=== PATIENT | female | born 1935 | race Caucasian/White ===

== ENCOUNTER → 2023-05-05 10:12 | Outpatient (BNVA) | payer MEDICARE, SELFPAY | PROVIDERS: Family Provider Family Medicine; PCP Family Medicine; Referring Provider Family Medicine; Visit Provider Internal Medicine Cardiovascular Disease | DX: R07.9 Chest pain, unspecified (principal); I50.9 Heart failure, unspecified; I45.10 Unspecified right bundle-branch block; R42 Dizziness and giddiness; I44.0 Atrioventricular block, first degree | CPT/HCPCS: 93005; 99203 ==

== ENCOUNTER 2023-05-19 13:24 | Outpatient (CLI) | payer MEDICARE, SELFPAY ==
--- NOTE | 2023-05-19 13:45 | USCV_ITS ---
Joanie Rodriguez Age: 87 Gender: F : 1935 Exam Date: 05/19/2023 14:21 Ordering Phys: Jo Ann Buck MD ([email or web address]) Technologist: [place] [facility] [place]: Shortness of breath BP: 157 / 77 HR: 71 Rhythm: Sinus Technical Quality: Adequate MEASUREMENTS (Male / Female) Normal Values 2D ECHO LV Chamber Size 3.7 cm RV Chamber Size 3.3 cm LVOT Diameter 2.0 cm LV Ejection Fraction MOD 2C 50.1 % LV Ejection Fraction 2C AL 50.6 % LA Diameter 3.9 cm LA Width 4.0 cm LA Height 4.6 cm RA Width 3.5 cm RA Height 4.8 cm Aorta at Sinotubular Diameter 2.1 cm IVC Diameter 1.1 cm M-MODE Aortic Annulus Diameter 2.8 cm LA Ao Ratio MM 1.5 MV E Point Septal Separation 0.9 cm DOPPLER AV Peak Velocity 123.0 cm/s LVOT Peak Velocity 71.0 cm/s AV Area Cont Eq vti 3.2 cm squared AV Area Cont Eq pk 1.8 cm squared MV Area PHT 4.5 cm squared Mitral E to A Ratio 1.0 MV E' Velocity 39.5 cm/s Mitral E to MV E' Ratio 12.7 Mitral E to LV E' Lateral Ratio 12.1 Mitral E to LV E' Septal Ratio 13.6 TR Peak Velocity 171.5 cm/s TR Peak Gradient 11.8 mmHg TV Peak E Velocity 58.0 cm/s Right Atrial Pressure 3.0 mmHg Pulmonary Artery Systolic Pressu 14.8 mmHg PV Peak Velocity 69.0 cm/s FINDINGS Left Ventricle Normal left ventricular size, systolic function and wall thickness, with no regional wall motion abnormalities. Left ventricular ejection fraction is estimated at 65 %. Grade II diastolic dysfunction, moderately elevated filling pressures. Right Ventricle Normal right ventricular size and systolic function. Right ventricular systolic pressure 22 mmHg. Right Atrium Normal right atrial size. Left Atrium Moderately increased left atrial size. Mitral Valve Thickened mitral valve. No mitral valve stenosis. Mild mitral valve regurgitation. Aortic Valve Thickened aortic valve. No aortic valve stenosis. Moderate aortic valve regurgitation. Tricuspid Valve Structurally normal tricuspid valve. No tricuspid valve stenosis. Trace tricuspid valve regurgitation. Pulmonic Valve Structurally normal pulmonic valve. No pulmonary valve stenosis. Trace pulmonary valve regurgitation. Pericardium No pericardial effusion. Aorta Normal size aortic root and proximal ascending aorta. IVC Normal IVC dimension with >50% respiratory change of the inferior vena cava. CONCLUSIONS 1. Normal left ventricular size, systolic function and wall thickness, with no regional wall motion abnormalities. Left ventricular ejection fraction is estimated at 65 %. Grade II diastolic dysfunction, moderately elevated filling pressures. 2. Normal right ventricular size and systolic function. 3. Moderate aortic valve regurgitation. 4. No prior similar studies to compare. Jo Ann Buck MD (Electronically Signed) Final Date: 20 May 2023 17:05 S
== END 2023-05-19 13:25 | disposition home or self-care (01) ==
LOC: RAD 13:24
PROVIDERS: PCP Family Medicine; Visit Provider Internal Medicine Cardiovascular Disease
DX: I50.30 Unspecified diastolic (congestive) heart failure (principal); I45.10 Unspecified right bundle-branch block; I35.1 Nonrheumatic aortic (valve) insufficiency; R42 Dizziness and giddiness; R06.02 Shortness of breath
CPT/HCPCS: 93306

== ENCOUNTER 2023-05-20 13:23 | Emergency (ER) | payer MEDICARE, SELFPAY ==
[2023-05-20] VITALS (34 sets, daily range): BP systolic 84–121; BP diastolic 45–68; PULSE 59–77; RESP 17–18; TEMP 36.1; O2SAT 86–100; BMI 19.1
--- NOTE | 2023-05-20 13:31 | ECG_ITS ---
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 Measurements Intervals [place] Rate: 63 P: 83 ND: 239 QRS: 58 QRSD: 141 T: 48 QT: 426 QTc: 436 Interpretive Statements SINUS RHYTHM WITH FIRST DEGREE AV BLOCK RIGHT BUNDLE BRANCH BLOCK [120+ ms QRS DURATION, UPRIGHT V1, 40+ ms S IN I/aVL/V4/V5/V6] Compared to ECG 05/05/2023 10:17:59 No significant changes Electronically Signed On 05-20-2023 16:45:32 CDT by Jo Ann Buck M.D. [id number]
--- NOTE | 2023-05-20 13:31 | CT_ITS ---
WS: [id number] CT CERVICAL TRAUMA TECHNIQUE: Noncontrast CT of the cervical spine with coronal and sagittal reformatted images. CLINICAL INFORMATION: fall COMPARISON: None. DLP: 1208.[address] scans at [facility] use at least one of these dose optimization techniques: automated e xposure control; mA and/or kV adjustment per patient size (includes targeted exams where dose is matc hed to clinical indication); or iterative reconstruction. FINDINGS: Exaggeration of the normal cervical lordosis. Mild spondylitic changes. Normal craniocervical junctio n. Normal C1-C2 articulation. Dens is normal in appearance. Normal occipital condyles. No high-grade spinal canal narrowing. Normal C1 ring. No evidence of acute fracture or dislocation. Normal prevertebral soft tissues. Mastoids air cells are well aerated. IMPRESSION: No evidence of acute fracture or dislocation.
--- NOTE | 2023-05-20 13:31 | CT_ITS ---
WS: [id number] CT HEAD TECHNIQUE: Noncontrast CT of the head obtained from the skullbase to the vertex. CLINICAL INFORMATION: Fall COMPARISON: None. DLP: 1208.[address] scans at [facility] use at least one of these dose optimization techniques: automated e xposure control; mA and/or kV adjustment per patient size (includes targeted exams where dose is matc hed to clinical indication); or iterative reconstruction. FINDINGS: No evidence of intracranial hemorrhage or mass effect. Ventricular system and basal cisterns are high nt. Moderate small vessel changes with moderate parenchymal volume loss. Intracranial vascular calcif ication. A few secretions in the ethmoid air cells. Mastoid air cells are well aerated. Cavernous car otid calcification. No extra-axial fluid collections. No evidence of mass or mass effect. IMPRESSION: 1. No evidence of intracranial hemorrhage or mass effect. 2. Moderate small vessel changes. Moderate parenchymal volume loss. 3. No acute intracranial findings.
--- NOTE | 2023-05-20 13:33 | W.ED.SYNCOPE ---
HPI - Syncope General: Chief Complaint: Fall Stated Complaint: fall, head lac Time Seen by Provider: 05/20/23 13:26 History of Present Illness: 87-year-old female that presents emergency department after an accidental fall today while at her home in her kitchen. She states she has recently been seen by industrial hygiene engineer and received an echocardiogram yesterday. She states that for the previous 2 days she has felt intermittently dizzy and weak. She states that both her and her recently contracted COVID-19 virus and has just started to recover after being ill for 1 week. She states that she was making her some food in the kitchen when she became dizzy and fell sideways striking her head on a hard object as she started to fall. She states she does have a small laceration to the left forehead area. She states that she does not recall if she had loss of consciousness or not. She denies neck pain, difficulty with vision or ambulation. Associated symptoms: Reports lightheadedness Review of Systems General: Reports: 10 or more systems reviewed and unremarkable except in HPI and below Const: Reports: fatigue and malaise Card: Reports: lightheadedness and syncope Skin/Breast: Reports: other (Laceration left forehead) Neuro: Reports: weakness in extremities and dizziness REPLACED BY [facility] PFSH: Medical History CHF (congestive heart failure), NYHA class III RBBB Family History Daughter Diabetes Denies family history of CAD (coronary artery disease) Clotting disorder Dementia Hyperlipidemia Psychiatric illness Chronic kidney disease (CKD) Suicide Anesthesia complication Bleeding disorder Family history of premature coronary artery disease Lung disease Cancer Hypertension Stroke Physical Exam Const: COMMON NORMALS: no acute distress, average body habitus, patient oriented x3, alert and well nourished HENMT: COMMON NORMALS: external ears normal, Normal external nose present and Normal nasal mucous membranes and turbinates present HEAD & SCALP: laceration (Left lateral supraorbital region with 3 cm laceration noted) NOSE: Normal external nose present, Normal nares present and Normal nasal mucous membranes and turbinates present EXTERNAL EAR: Yes external ears normal and Yes external ear abnormal Eye: COMMON NORMALS: Equal, round and reactive pupils present and EOMs intact bilaterally PUPIL: Yes Equal, round and reactive pupils present Neck/C-Spine: COMMON NORMALS: full ROM, supple and no meningeal signs Chest: COMMONS NORMALS: normal inspection of the chest and normal palpation of entire chest wall Resp: COMMON NORMALS: normal respiratory effort, No retractions, No use of accessory muscles and clear to auscultation bilaterally AUSCULTATION: clear to auscultation bilaterally Cardio: COMMON NORMALS: regular rate, regular rhythm, S1 normal heart sound present, S2 normal heart sound present and Peripheral pulses 2+ throughout RATE: regular rate RHYTHM: regular rhythm HEART SOUNDS: S1 normal heart sound present and S2 normal heart sound present PERIPHERAL PULSES: Peripheral pulses 2+ throughout GI: COMMON NORMALS: Normal to inspection, nondistended, normoactive bowel sounds present, Soft to palpation and non-tender PALPATION: Yes Soft to palpation Back/Pelvis: COMMON NORMALS: thoracic and lumbar spine normal to inspection, no thoracic nor lumbar tenderness and thoraco-lumbar ROM normal Extremity: COMMON NORMALS: normal to inspection, full ROM and capillary refill normal Neuro: COMMON NORMALS: patient oriented x3, CN's II-XII intact bilaterally, moves all extremities, no focal motor deficits, no sensory deficits noted and gait normal SENSORIUM/ORIENTATION: Yes alert MENINGEAL SIGNS: Yes no meningeal signs Psych: COMMON NORMALS: mental status grossly normal, Normal thought process present and cooperative THOUGHT PROCESS: Normal thought process present Skin: TRAUMA: laceration linear, actively bleeding, superficial, motor nerve function intact and sensation intact Procedures Laceration Laceration 1: Site: face (Left lateral supraorbital region) Side (If applicable): left Size (cm): 3 Depth: simple, single layer Local Anesthetic: lidocaine 1% Amount of anesthesia used (mL): 5 Pre-repair: wound explored and irrigated extensively Skin layer closed with: vicryl (4-0) Size (cm): 4-0 Number of sutures: 3 Technique: simple, interrupted Course Vital Signs: Vital signs: Vital Signs Temperature 97 F L 05/20/23 13:25 Pulse Rate 59 L 05/20/23 16:49 Respiratory Rate 18 05/20/23 16:49 Blood Pressure 121/61 05/20/23 16:49 Pulse Oximetry 93 05/20/23 16:49 Oxygen Delivery Me thod Room Air 05/20/23 14:06 MDM - Syncope Medical Decision Making Physical exam completed and documented, radiograph examination given the patient's age and the mechanism of her fall we will obtain a CT scan of her head and neck to evaluate for intracranial injury. Given her recent COVID illness we will obtain laboratory evaluation to determine if there is electrolyte abnormalities which led to her recent fall. We have provided laceration repair as noted previously. Given her recent office visit with her industrial hygiene engineer we will recommend that she follow-up with her primary care provider and follow any cardiology recommendations that were provided previously. Medical Records I reviewed the patient's medical records. Lab Data I reviewed the patient's lab results. 05/20/23 14:17 05/20/23 14:17 Radiology Impressions Chest X-Ray 05/20/23 13:34 IMPRESSION: No acute findings. Laboratory Results WBC 4.78 10^3/uL (3.29-11.43) 05/20/23 14:17 RBC 4.26 10^6/uL (3.85-5.65) 05/20/23 14:17 Hgb 12.30 g/dL (11.27-16.99) 05/20/23 14:17 Hct 38.3 % (36-47) 05/20/23 14:17 MCV 89.9 fl (85-98) 05/20/23 14:17 MCH 28.9 pg (27-33) 05/20/23 14:17 MCHC 32.1 g/dL (30-55) 05/20/23 14:17 RDW 13.2 % (12.1-15.1) 05/20/23 14:17 Plt Count 154 10^3/cmm (157-399) L 05/20/23 14:17 MPV 12.3 fL (7.4-10.4) H 05/20/23 14:17 Neut % (Auto) 75.5 % 05/20/23 14:17 Lymph % (Auto) 13.0 % 05/20/23 14:17 [place] % (Auto) 10.5 % 05/20/23 14:17 Eos % (Auto) 0.4 % 05/20/23 14:17 Baso % (Auto) 0.2 % 05/20/23 14:17 Neut # (Auto) 3.61 10^3/uL (1.8-7.7) 05/20/23 14:17 Lymph # (Auto) 0.6 10^3/uL (0.8-4.8) L 05/20/23 14:17 [place] # (Auto) 0.5 10^3/uL (0.2-0.9) 05/20/23 14:17 Eos # (Auto) 0.0 10^3/uL (0.0-0.8) 05/20/23 14:17 Baso # (Auto) 0.0 10^3/uL (0.0-0.1) 05/20/23 14:17 Nucleated RBC % (auto) 0 % 05/20/23 14:17 Nucleated RBCs # 0.0 /100WBC 05/20/23 14:17 Sodium 141 mmol/L (136-145) 05/20/23 14:17 Potassium 4.3 mmol/L (3.5-5.1) 05/20/23 14:17 Chloride 103 mmol/L (98-107) 05/20/23 14:17 Carbon Dioxide 27 mmol/L (22-29) 05/20/23 14:17 Anion Gap 15.3 (5-19) 05/20/23 14:17 BUN 34 mg/dL (8-23) H 05/20/23 14:17 Creatinine 1.6 mg/dL (0.5-0.9) H 05/20/23 14:17 GFR Calculation Not Reportable 05/20/23 14:17 Glucose 118 mg/dL (65-115) H 05/20/23 14:17 Calculated Osmolality 301 mOsm/kg (285-295) H 05/20/23 14:17 Calcium 9.5 mg/dL (8.5-10.5) 05/20/23 14:17 Magnesium 2.0 mg/dL (1.7-2.3) 05/20/23 14:17 Total Bilirubin 0.6 mg/dL (0.15-1.2) 05/20/23 14:17 AST 86 U/L (0-32) H 05/20/23 14:17 ALT 102 U/L (0-33) H 05/20/23 14:17 Alkaline Phosphatase 137 U/L (35-105) H 05/20/23 14:17 Total Protein 7.0 g/dL (6.6-8.7) 05/20/23 14:17 Albumin 4.2 g/dL (3.5-5.2) 05/20/23 14:17 Globulin 2.8 g/dL (1.3-4.6) 05/20/23 14:17 Urine Color Yellow (Yellow) 05/20/23 15:06 Urine Appearance Cloudy (CLEAR) A 05/20/23 15:06 Urine pH 5 (5-7) 05/20/23 15:06 Ur Specific [place] 1.020 (1.005-1.030) 05/20/23 15:06 Urine Protein Neg (Negative) 05/20/23 15:06 Urine Glucose (UA) Norm (Normal) 05/20/23 15:06 Urine Ketones Negative (Negative) 05/20/23 15:06 Urine Blood Neg (Negative) 05/20/23 15:06 Urine Nitrate Negative (Negative) 05/20/23 15:06 Urine Bilirubin 1+ (Negative) H 05/20/23 15:06 Urine Urobilinogen Norm mg/dL (Negative) 05/20/23 15:06 Ur Leukocyte Esterase 1+ (Negative) H 05/20/23 15:06 Urine RBC 0-4 /hpf (0-2) H 05/20/23 15:06 Urine WBC 0-4 /hpf (0-5) H 05/20/23 15:06 Ur Squamous Epith Cells 25-40 /hpf (0-5) H 05/20/23 15:06 Amorphous Sediment Not Reportable 05/20/23 15:06 Urine Bacteria 2+ /hpf (NONE) H 05/20/23 15:06 Hyaline Casts 0-4 /lpf H 05/20/23 15:06 Fine Granular Casts Rare /lpf 05/20/23 15:06 Urine Mucus Trace /hpf 05/20/23 15:06 Influenza Type A Ag negative (Negative) 05/20/23 14:07 Influenza Type B Ag negative (Negative) 05/20/23 14:07 All radiology interpretation(s) finalized by discharge Discharge Plan Discharge Patient Disposition: Home Clinical Impression: Fall, Laceration of face Condition: Stable Prescriptions: No Action dicyclomine 10 mg capsule 10 mg PO QAM levothyroxine 25 mcg capsule 25 mcg PO QAM lisinopril 5 mg tablet 5 mg PO QAM metoprolol succinate 25 mg tablet extended release 24 hr 12.5 mg PO QAM mirtazapine 7.5 mg tablet 7.5 mg PO BEDTIME PRN (Reason: Anxiety) pantoprazole [Protonix] 40 mg tablet,delayed release (DR/EC) 40 mg PO QPM hydrochlorothiazide 12.5 mg capsule 12.5 mg PO QAM Discharge Orders: Discharge ED (Routine); Ordered 05/20/23 Ordered By: Rolly Randle Referrals: Ralph Doty [Primary Care Provider] - Discharge Diet: Advance as tolerated Discharge Activity: Resume usual activity Patient Instructions: Opioid Safety, Pain Management Activity Restrictions/Additional Instructions: Follow-up with your primary care provider in the next 7 to 10 days to have your wound evaluated for suture removal. You may return here to the emergency department between the hours of 8 and 10 AM which may allow you to be seen and have your sutures removed more quickly. Coding Level of Care Code ED Financial Investment Adviser for Kaci Norman
--- NOTE | 2023-05-20 13:34 | XRR_ITS ---
PROCEDURE INFORMATION: Exam: XR Chest Exam date and time: 05/20/2023 1:39 PM Age: 87 years old Clinical indication: Other: Syncope TECHNIQUE: Imaging protocol: Radiologic exam of the chest. Views: 1 view. COMPARISON: CT abdomen pelvis con [id number] 02/12/2017 9:41 AM FINDINGS: Lungs: Changes of emphysema. The lungs are clear. No consolidation. Pleural spaces: Unremarkable. No pleural effusion. No pneumothorax. Heart/Mediastinum: Unremarkable. No cardiomegaly. Bones/joints: Old right rib fracture. Resection of the distal right clavicle. XR/XR chest 1V portable [id number] IMPRESSION: No acute findings.
[2023-05-20 14:41] LABS: Basophils % 0.2 %; Eosinophils % 0.4 %; Hematocrit 38.3 % (36-47); Lymphocytes # 0.6 10^3/uL (0.8-4.8); Mean Corpuscular HGB Conc 32.1 g/dL (30-55); Mean Corpuscular Hemoglobin 28.9 pg (27-33); Mean Corpuscular Volume 89.9 fl (85-98); Mean Platelet Volume 12.3 fL (7.4-10.4); Monocytes # 0.5 10^3/uL (0.2-0.9); Monocytes % 10.5 %; Neutrophils # 3.61 10^3/uL (1.8-7.7); Neutrophils % 75.5 %; Nucleated Red Blood Cells % 0 %; Platelet Count 154 10^3/cmm (157-399); Red Blood Count 4.26 10^6/uL (3.85-5.65); Red Cell Distribution Width 13.2 % (12.1-15.1); White Blood Count 4.78 10^3/uL (3.29-11.43)
[2023-05-20 14:55] LABS: Influenza A by IFA negative (Negative); Influenza B by IFA negative (Negative)
[2023-05-20 15:01] LABS: Alanine Aminotransferase 102 U/L (0-33); Albumin Level 4.2 g/dL (3.5-5.2); Alkaline Phosphatase 137 U/L (35-105); Anion Gap 15.3 (5-19); Aspartate Amino Transferase 86 U/L (0-32); Blood Urea Nitrogen 34 mg/dL (8-23); Calcium 9.5 mg/dL (8.5-10.5); Carbon Dioxide 27 mmol/L (22-29); Chloride 103 mmol/L (98-107); Globulin 2.8 g/dL (1.3-4.6); Glucose 118 mg/dL (65-115); Osmolality Calculated 301 mOsm/kg (285-295); Potassium 4.3 mmol/L (3.5-5.1); Sodium 141 mmol/L (136-145); Total Bilirubin 0.6 mg/dL (0.15-1.2)
[2023-05-20 15:48] LABS: Add Urine Microscopic? YES; Bilirubin Urine 1+ (Negative); Blood Urine Neg (Negative); Glucose Urine UA Norm (Normal); Ketones Urine Negative (Negative); Leukocyte Esterase Urine 1+ (Negative); Nitrate Urine Negative (Negative); Protein Urine Neg (Negative); RBC Urine 0-4 /hpf (0-2); Urine Appearance Cloudy (CLEAR); Urine Color Yellow (Yellow); Urobilinogen Urine Norm (Negative); WBC Urine 0-4 /hpf (0-5); pH Urine 5 (5-7)
[2023-05-20 15:49] LABS: Add Urine Culture? No; Bacteria Urine 2+ /hpf; Fine Granular Casts Urine RARE /lpf; Hyaline Casts Urine 0-4 /lpf; Mucus Urine TRACE /hpf; Squamous Epithelial Cell Urine 25-40 /hpf (0-5)
[2023-05-20] MEDS: neomycin-poly-bacitracin oint 28 gm 1 APPLIC TOPICAL (16:49)
== END 2023-05-20 16:50 | disposition home or self-care (01) ==
PROVIDERS: Emergency Provider Internal Medicine; PCP Family Medicine
DX: S01.81XA Laceration without foreign body of other part of head, initial encounter (principal); W18.39XA Other fall on same level, initial encounter; Y92.000 Kitchen of unspecified non-institutional (private) residence as the place of occurrence of the external cause; I50.9 Heart failure, unspecified
CPT/HCPCS: 36415; 70450; 71045; 72125; 80053; 81001; 83735; 85025; 87804; 93005; 99285

== ENCOUNTER → 2023-11-05 15:43 | Outpatient (BNVA) | payer MEDICARE, SELFPAY | PROVIDERS: PCP Family Medicine; Referring Provider Family Medicine; Visit Provider Specialist | DX: M17.11 Unilateral primary osteoarthritis, right knee | CPT/HCPCS: 20610; 73560; 73565; 99204; J1100; J2795; J3301 ==

== ENCOUNTER 2023-11-27 15:19 | Outpatient (CLI) | payer MEDICARE, SELFPAY | END 2023-11-27 15:20 | disposition home or self-care (01) | LOC: SPT 15:19 | PROVIDERS: PCP Family Medicine; Visit Provider Specialist | DX: Z46.89 Encounter for fitting and adjustment of other specified devices (principal); M25.561 Pain in right knee; M17.11 Unilateral primary osteoarthritis, right knee | CPT/HCPCS: 97760; L1851 ==

== ENCOUNTER 2024-02-07 19:30 | Inpatient (IN) | payer MEDICARE, SELFPAY ==
--- NOTE | 2024-02-07 19:40 | ECG_ITS ---
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 Measurements Intervals [place] Rate: 102 P: 75 [place]: 237 QRS: 9 QRSD: 129 T: 30 QT: 356 QTc: 464 Interpretive Statements RIGHT BUNDLE BRANCH BLOCK [120+ ms QRS DURATION, UPRIGHT V1, 40+ ms S IN I/aVL/V4/V5/V6] Sinus rhythm with frequent premature atrial contractions Compared to ECG 05/20/2023 14:07:56 Ectopy is new Electronically Signed On 02-08-2024 9:56:20 CDT by Alex Low M.D. [id number]
[2024-02-07 19:46] VITALS: BP 164/85; PULSE 89; RESP 38; TEMP 37.5; O2SAT 91; BMI 20.6
--- NOTE | 2024-02-07 19:56 | XRR_ITS ---
PROCEDURE INFORMATION: Exam: XR Chest Exam date and time: 02/07/2024 8:32 PM Age: 88 years old Clinical indication: Chest pressure; Patient HX: Chest pain; Weakness; Afib; Wheezing TECHNIQUE: Imaging protocol: Radiologic exam of the chest. Views: 1 view. COMPARISON: CR XR chest 1V portable [id number] 05/20/2023 1:39 PM FINDINGS: Lungs: Mild central vascular congestion. Moderate interstitial prominence most consistent with pulmonary edema. Pleural spaces: Small bilateral pleural effusions. No pneumothorax. Heart/Mediastinum: Mild cardiomegaly. Bilateral calcified mediastinal lymph nodes, stable. Bones/joints: No acute osseous abnormalities are seen. XR/XR chest 1V portable [id number] IMPRESSION: Cardiomegaly, central vascular congestion, pulmonary edema, and small effusions. Correlate with CHF. Atypical infection could potentially have this appearance.
[2024-02-07 20:15] LABS: Basophils % 0.4 %; Eosinophils # 0.1 10^3/uL (0.0-0.8); Eosinophils % 1.3 %; Hematocrit 38.5 % (36-47); Lymphocytes # 0.8 10^3/uL (0.8-4.8); Lymphocytes % 9.5 %; Mean Corpuscular HGB Conc 30.9 g/dL (30-55); Mean Corpuscular Hemoglobin 29.2 pg (27-33); Mean Corpuscular Volume 94.6 fl (85-98); Mean Platelet Volume 11.8 fL (7.4-10.4); Monocytes # 0.7 10^3/uL (0.2-0.9); Monocytes % 8.3 %; Neutrophils # 6.57 10^3/uL (1.8-7.7); Neutrophils % 80.1 %; Nucleated Red Blood Cells % 0 %; Platelet Count 156 10^3/cmm (157-399); Red Blood Count 4.07 10^6/uL (3.85-5.65); Red Cell Distribution Width 12.9 % (12.1-15.1)
[2024-02-07 20:31] LABS: Troponin(5th) Baseline 17 ng/L (0-10)
[2024-02-07 20:32] LABS: Anion Gap 14.1 (5-19); Blood Urea Nitrogen 19 mg/dL (8-23); Calcium 8.8 mg/dL (8.5-10.5); Carbon Dioxide 27 mmol/L (22-29); Chloride 108 mmol/L (98-107); Creatinine Clr Calc Pharmacy 30.9511; Glucose 122 mg/dL (65-115); Osmolality Calculated 304 mOsm/kg (285-295); Potassium 4.1 mmol/L (3.5-5.1); Sodium 145 mmol/L (136-145)
[2024-02-07 21:36] VITALS: BP 158/78; PULSE 73; RESP 32; TEMP 37.5; O2SAT 92
[2024-02-07 22:30] VITALS: PULSE 90; RESP 18; O2SAT 90
[2024-02-07] MEDS: ipratropium-albuterol 3 mL Neb INHALATION (22:30)
[2024-02-07 22:31] LABS: Troponin 5 2HR 17.62 ng/L (0-10); Troponin 5 2HR Delta 0.62 ABS# (0-10)
[2024-02-07 22:33] VITALS: BP 176/82; PULSE 88; RESP 18; O2SAT 94
[2024-02-07] MEDS: methylPREDNISolone sod succ 125 mg/2 mL INJ IVP (22:43)
[2024-02-07 23:11] LABS: NT Pro B Type Natriuretic Pept 3705 pg/mL (0-450)
[2024-02-07] MEDS: cefTRIAXone 1,000 MG in sodium chloride 0.9% (plus) 50 ML 100 MG IV (23:17)
[2024-02-08] VITALS (8 sets, daily range): BP systolic 117–165; BP diastolic 62–78; PULSE 70–91; RESP 16–18; TEMP 36.3–37.1; O2SAT 92–94; BMI 21.9
--- NOTE | 2024-02-08 00:29 | USCV_ITS ---
Joanie Rodriguez Age: 88 Gender: F : 1935 Exam Date: 02/08/2024 10:49 Ordering Phys: Vanesa Oliveira MD Technologist: Lex Suh [place] [facility] [place]ication: suspected heart failure BP: 140 / 65 HR: 74 Rhythm: Sinus Technical Quality: Adequate MEASUREMENTS (Male / Female) Normal Values 2D ECHO LV Diastolic Diameter PLAX 4.4 cm 4.2 - 5.9 / 3.9 - 5.3 cm IVS Diastolic Thickness 0.9 cm 0.6 - 1.0 / 0.6 - 0.9 cm IVS Systolic Thickness 1.3 cm LVPW Diastolic Thickness 1.6 cm 0.6 - 1.0 / 0.6 - 0.9 cm LVPW Systolic Thickness 1.9 cm LVOT Diameter 2.1 cm LV Ejection Fraction 2D Teich 57.1 % LV Ejection Fraction MOD 2C 73.1 % LV Ejection Fraction 2C AL 72.3 % LA Diameter 3.2 cm RA Systolic Volume 4C AL 39.3 ml RA Systolic Volume 4C MOD 39.1 ml LA Sys Volume AL 41.8 cm cubed LA Sys Volume Index AL 28.4 cm cubed/m squared Aorta at Sinotubular Diameter 1.9 cm IVC Diameter 1.4 cm M-MODE LA Ao Ratio MM 1.7 AV Cusp Separation MM 1.6 cm DOPPLER AV Peak Velocity 277.3 cm/s LVOT Peak Velocity 46.0 cm/s AV Area Cont Eq vti 2.1 cm squared AV Area Cont Eq pk 0.6 cm squared MV Peak Velocity 483.5 cm/s MV Area PHT 5.6 cm squared Mitral E to A Ratio 1.6 TV Peak Velocity 300.0 cm/s TR Peak Velocity 306.0 cm/s TR Peak Gradient 37.5 mmHg TR Mean Velocity 232.0 cm/s TR Mean Gradient 23.8 mmHg TR Velocity Time Integral 103.6 cm PV Peak Velocity 89.0 cm/s RV Ejection Time 0.3 s FINDINGS Left Ventricle Normal left ventricular size, systolic function and wall thickness, with no regional wall motion abnormalities. Grade II/IV diastolic dysfunction, moderately elevated filling pressures. Left ventricular ejection fraction is estimated at 60 %. Right Ventricle Normal right ventricular size and systolic function. Right Atrium The right atrium is normal in size. Left Atrium Mildly increased left atrial size. Mitral Valve Structurally normal mitral valve. Moderate mitral valve regurgitation. Aortic Valve Structurally normal trileaflet aortic valve. [id number] aortic valve regurgitation. Tricuspid Valve Structurally normal tricuspid valve. Trace to mild tricuspid valve regurgitation. Pulmonic Valve Pulmonic valve not well visualized. Trace pulmonary valve regurgitation. Pericardium Normal pericardium without effusion. Aorta Normal ascending aorta dimension. IVC The inferior vena cava appears normal. CONCLUSIONS Normal left ventricular size, systolic function and wall thickness, with no regional wall motion abnormalities. Grade II/IV diastolic dysfunction, moderately elevated filling pressures. Left ventricular ejection fraction is estimated at 60 %. Mildly increased left atrial size. Structurally normal mitral valve. Moderate mitral valve regurgitation. Structurally normal trileaflet aortic valve. [id number] aortic valve regurgitation. Previous study was May of last year. No change. Dr. Alex Low MD (Electronically Signed) Final Date: 08 February 2024 17:09 S
[2024-02-08] MEDS: mirtazapine 15 mg Tablet 7.5 MG PO ×2 (00:59→21:17)
[2024-02-08 01:04] LABS: Add Urine Culture? Yes; Add Urine Microscopic? YES; Amorphous Sediment Urine TRACE /hpf; Bacteria Urine 1+ /hpf; Bilirubin Urine Neg (Negative); Blood Urine 2+ (Negative); Glucose Urine UA Norm (Normal); Ketones Urine Negative (Negative); Leukocyte Esterase Urine 1+ (Negative); Mucus Urine TRACE /hpf; Nitrate Urine Negative (Negative); Protein Urine Neg (Negative); RBC Urine 0-4 /hpf (0-2); Squamous Epithelial Cell Urine 0-4 /hpf (0-5); Urine Appearance Clear (CLEAR); Urine Color Yellow (Yellow); Urobilinogen Urine Neg (Negative); pH Urine 5 (5-7)
[2024-02-08 01:06] LABS: Adenovirus Not Detected (NOT DETECT); Chlamydia Pneumoniae Not Detected (NOT DETECT); Coronavirus 229E,HKU1,NL63,OC4 Not Detected (NOT DETECT); Human Metapneumovirus Not Detected (NOT DETECT); Human Rhinovirus/Enterovirus Not Detected (NOT DETECT); Influenza A Not Detected (NOT DETECT); Influenza A H1 Not Detected (NOT DETECT); Influenza A H1-2009 Not Detected (NOT DETECT); Influenza A H3 Not Detected (NOT DETECT); Influenza B Not Detected (NOT DETECT); Mycoplasma Pneumoniae Not Detected (NOT DETECT); Parainfluenza Virus Type 1 Not Detected (NOT DETECT); Parainfluenza Virus Type 2 Not Detected (NOT DETECT); Parainfluenza Virus Type 3 Not Detected (NOT DETECT); Parainfluenza Virus Type 4 Not Detected (NOT DETECT); Respiratory Syncytial Virus A Not Detected (NOT DETECT); Respiratory Syncytial Virus B Not Detected (NOT DETECT); SARS-COV-2 Not Detected (NOT DETECT)
[2024-02-08 02:08] LABS: Troponin 5 6HR 16.29 ng/L (0-10); Troponin 5 6HR Delta -0.71 ng/L (0-12)
[2024-02-08 02:17] LABS: Procalcitonin 0.05 ng/mL (0-0.5)
--- NOTE | 2024-02-08 02:17 | P.HP_ITS ---
Providers/Chief Complaint 2 Admitting Physician: Vanesa Oliveira MD Primary Care Provider: Ralph Doty Chief Complaint: Sob bp high has afib wheezy History of Present Illness Joanie Rodriguez is a 88 year old woman with PMH of CHF , RBBB, A.fibrillation who presents for further evaluation of worsening shortness of breath, cough, subjective fever of a few day.s She also noticed some lower extremity puffiness. She denies abdominal pain, nausea, vomiting , chest pain or any other symptoms. In the ER, she was noted to be hypoxic. Chest x-ray showed signs of pulmonary edema vs pneumonia. Review of Systems 2 General: Reports: 10 or more systems reviewed and unremarkable except in HPI and below Const: Denies: fever(s) Eyes: Denies: change in vision or blurry vision ENMT: Denies: throat pain or uvular edema Card: Denies: chest pain or palpitations GI: Denies: abdominal pain, nausea or vomiting : Denies: flank pain or difficulty voiding Neuro: Denies: headache(s), numbness in extremities or weakness in extremities Endo: Denies: polyuria or polydipsia Medications/Allergies Home Medications Medication Instructions Recorded Confirmed Last Taken Type levothyroxine 25 mcg capsule 25 mcg PO QAM 05/05/23 02/08/24 02/07/24 10:00 History metoprolol succinate 25 mg 12.5 mg PO QAM 05/05/23 02/08/24 02/07/24 10:00 History tablet,extended release 24 hr mirtazapine 7.5 mg tablet 7.5 mg PO BEDTIME PRN Anxiety 05/05/23 02/08/24 02/07/24 10:00 History pantoprazole 40 mg tablet,delayed 40 mg PO QAM 05/05/23 02/08/24 02/07/24 10:00 History release (Protonix) hydrochlorothiazide 12.5 mg capsule 12.5 mg PO QAM PRN Blood Pressure 05/21/23 02/08/24 02/07/24 10:00 History lisinopril 5 mg tablet 2.5 mg PO QAM 05/21/23 02/08/24 02/07/24 10:00 History 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, 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 #1 ea 11/06/23 11/06/23 Unknown Rx magnesium oxide 200 mg PO DAILY 02/08/24 02/08/24 02/07/24 10:00 History Allergies Allergy/AdvReac Type Severity Reaction Status Date / Time Sulfa (Sulfonamide Allergy Unknown Verified 02/07/24 19:56 Antibiotics) PFSH Acute 2 PFSH: Medical History RBBB CHF (congestive heart failure), NYHA class III Family History Daughter Diabetes Denies family history of CAD (coronary artery disease) Clotting disorder Dementia Hyperlipidemia Psychiatric illness Chronic kidney disease (CKD) Suicide Anesthesia complication Bleeding disorder Family history of premature coronary artery disease Lung disease Cancer Hypertension Stroke Vitals/I&O/Wt Last Vital Signs Temp 98.8 F 02/08/24 00:55 Pulse 91 02/08/24 00:55 Resp 16 02/08/24 00:55 BP 155/76 02/08/24 00:55 Pulse Ox 93 02/08/24 00:55 O2 Del Method Nasal Cannula 02/08/24 00:55 O2 Flow Rate 1.5 02/08/24 00:55 02/07/24 02/07/24 02/08/24 14:59 22:59 06:59 Intake Total 50 / 50 Balance 50 / 50 Weight last 48 hrs Weight 50.802 kg Weight 46.266 kg Physical Exam 2 Const: COMMON NORMALS: no acute distress, patient oriented x3 and alert O THER: Wearing nasal canula HENMT: COMMON NORMALS: normocephalic, atraumatic, external ears normal, Normal external nose present, moist oral mucous membranes and oropharynx normal HEAD & SCALP: normocephalic and atraumatic NOSE: Normal external nose present E XTERNAL EAR: Yes external ears normal Eye: COMMON NORMALS: Equal, round and reactive pupils present, EOMs intact bilaterally, conjunctivae normal and no scleral icterus CONJUNCTIVA: Yes conjunctivae normal PUPIL: Yes Equal, round and reactive pupils present Neck/C-Spine: COMMON NORMALS: full ROM, no lymphadenopathy and no JVD Chest: COMMONS NORMALS: normal inspection of the chest Resp: AUSCULTATION: clear to auscultation bilaterally OTHER: Diminished breath sounds BL, bibasilar crackles , no wheezes Cardio: COMMON NORMALS: regular rate, regular rhythm, S1 normal heart sound present and S2 normal heart sound present RATE: regular rate RHYTHM: r egular rhythm HEART SOUNDS: S1 normal heart sound present and S2 normal heart sound present GI: COMMON NORMALS: Normal to inspection, nondistended, normoactive bowel sounds present, Soft to palpation and non-tender PALPATION: Yes Soft to palpation Extremity: COMMON NORMALS: normal to inspection NARRATIVE EXTREMITY EXAM: + BL pedal edema Neuro: COMMON NORMALS: patient oriented x3 SENSORIUM/ORIENTATION: Yes alert OTHER: No gross focal deficits Data 02/08/24 01:32 02/08/24 01:32 Micro: Microbiology 02/07/24 23:00 Blood Culture - Preliminary Blood SPECIMEN COLLECTED 02/07/24 23:00 Blood Culture - Preliminary Blood SPECIMEN COLLECTED A&P Assessment and plan (1) Decompensated heart failure: -Patient presented with shortness of breath . Chest x-ray shows pulmonary edema , small effusions -Start IV lasix 20mg BID , strict i/os, daily weights -check TTE -Ct to monitor (2) Hypoxia: - In the setting of heart failure -She does not wear oxygen at baseline, she is requiring 1.5L supplemental oxygen -Wean oxygen as tolerated (3) Pneumonia: -Chest x-ray findings also suspicious for pneumonia -She received dose of ceftriaxone in the ER -Check procalcitonin, deescalate antibiotics as appropriate (4) Hypertension: -Resume antihypertesnives (5) UTI (urinary tract infection): - Continue ceftriaxone -Follow urine cultures Attestations 2 Medical Necessity Statement*: Patient's care will cross 2 midnights Coding Level of Care Code Acute Code for [facility] Diagnoses Decompensated heart failure I50.9 Hypoxia R09.02 Pneumonia J18.9 Hypertension I10 UTI (urinary tract infection) N39.0
--- NOTE | 2024-02-08 02:40 | ECG_ITS ---
[facility] Test Date: 2024-02-08 Pat Name: Joanie Rodriguez Department: Room: 263 Gender: Female Sas Programmer: : 1935 Requested By: Ky Kramer Order Number: [id number] Jerad MD: Alex Low M.D. Measurements Intervals [place] Rate: 81 P: 91 MI: 228 QRS: 22 QRSD: 134 T: 0 QT: 406 QTc: 474 Interpretive Statements RIGHT BUNDLE BRANCH BLOCK [120+ ms QRS DURATION, UPRIGHT V1, 40+ ms S IN I/aVL/V4/V5/V6] Compared to ECG 02/07/2024 19:40:46 No significant changes Electronically Signed On 02-08-2024 10:01:18 CDT by Alex Low M.D. [id number]
[2024-02-08] MEDS: FUROsemide 10 mg/mL SDV 2mL 20 MG IVP ×2 (03:02→15:25)
[2024-02-08] MEDS: enoxaparin 40 mg/0.4 mL Syringe SUBCUT (03:02)
--- NOTE | 2024-02-08 03:27 | W.ED.SOB ---
HPI - SOB/Dyspnea General: Chief Complaint: General Medical Stated Complaint: Sob bp high has afib wheezy Time Seen by Provider: 02/07/24 22:22 History of Present Illness: HPI Narrative: 88-year-old female complaining of shortness of breath. Family noticed her blood pressure was elevated today. They also noticed that her respiratory rate did come up, and that she was running a temperature. She does not normally use oxygen. She had a mild cough. She appeared wheezy to them. MD elicited complaint: shortness of breath Associated symptoms: Reports fever(s); Deny abdominal pain, chest pain or vomiting Review of Systems Const: Reports: fever(s) Card: Denies: chest pain Resp: Reports: dyspnea and non-productive cough GI: Denies: abdominal pain or vomiting PFSH ED PFSH: Medical History RBBB CHF (congestive heart failure), NYHA class III Family History Daughter Diabetes Denies family history of CAD (coronary artery disease) Clotting disorder Dementia Hyperlipidemia Psychiatric illness Chronic kidney disease (CKD) Suicide Anesthesia complication Bleeding disorder Family history of premature coronary artery disease Lung disease Cancer Hypertension Stroke Physical Exam Const: GENERAL APPEARANCE: cooperative, ill appearing and frail appearing HENMT: COMMON NORMALS: normocephalic, atraumatic and Normal external nose present HEAD & SCALP: normocephalic and atraumatic FACE & SINUS: normal facial exam and face symmetric NOSE: Normal external nose present Eye: COMMON NORMALS: Equal, round and reactive pupils present and EOMs intact bilaterally PUPIL: Yes Equal, round and reactive pupils present Neck/C-Spine: GENERAL: Yes trachea midline Chest: CHEST: Yes Symmetrical chest wall rise Resp: EFFORT & INSPECTION: Yes symmetric chest movement and Yes tachypneic AUSCULTATION: rhonchi Cardio: COMMON NORMALS: regular rate RATE: regular rate RHYTHM: abnormal rhythm irregularly irregular GI: COMMON NORMALS: Normal to inspection, nondistended, normoactive bowel sounds present Extremity: COMMON NORMALS: no pedal edema Neuro: EVE COMA SCALE: document GCS findings Bogard coma scale eye opening: Spontaneous Bogard coma scale verbal response: Orientated Bogard coma scale motor response: Obey commands Bogard coma scale total score: 15 SENSORY EXAM: Yes extremities (intact) Psych: COMMON NORMALS: speech normal SPEECH: Yes normal speech Skin: COMMON NORMALS: no rashes or lesions noted GENERAL SKIN EXAM: no rashes or lesions noted Course Vital Signs: Vital signs: Vital Signs Temperature 97.4 F L 02/08/24 16:58 Pulse Rate 75 02/08/24 16:58 Respiratory Rate 18 02/08/24 16:58 Blood Pressure 136/78 02/08/24 16:58 Pulse Oximetry 93 02/08/24 16:58 Oxygen Delivery Me thod Room Air 02/08/24 16:58 Oxygen Flow Rate 1.5 02/08/24 00:55 MDM - SOB/Dyspnea Medical Decision Making Shortness of breath, increased oxygen demand, tachypnea and fever. White blood cell count is 8. Creatinine is normal. She denies chest pain. Troponin stayed stable at 17. BNP is elevated. Chest x-ray shows right lower lobe infiltrate with increased vasculature. CHF versus pneumonia. She has been given antibiotics after lactic acid and blood cultures have been drawn here. She will be admitted. Hospitalist agrees to admit. Lab Data 02/08/24 01:32 02/08/24 01:32 Labs/Radiology: Radiology Impressions Chest X-Ray 02/07/24 19:56 IMPRESSION: Cardiomegaly, central vascular congestion, pulmonary edema, and small effusions. Correlate with CHF. Atypical infection could potentially have this appearance. Laboratory Results WBC 8.20 10^3/uL (3.29-11.43) 02/07/24 20:08 RBC 4.07 10^6/uL (3.85-5.65) 02/07/24 20:08 Hgb 11.90 g/dL (11.27-16.99) 02/07/24 20:08 Hct 38.5 % (36-47) 02/07/24 20:08 MCV 94.6 fl (85-98) 02/07/24 20:08 MCH 29.2 pg (27-33) 02/07/24 20:08 MCHC 30.9 g/dL (30-55) 02/07/24 20:08 RDW 12.9 % (12.1-15.1) 02/07/24 20:08 Plt Count 156 10^3/cmm (157-399) L 02/07/24 20:08 MPV 11.8 fL (7.4-10.4) H 02/07/24 20:08 Neut % (Auto) 80.1 % 02/07/24 20:08 Lymph % (Auto) 9.5 % 02/07/24 20:08 [place] % (Auto) 8.3 % 02/07/24 20:08 Eos % (Auto) 1.3 % 02/07/24 20:08 Baso % (Auto) 0.4 % 02/07/24 20:08 Neut # (Auto) 6.57 10^3/uL (1.8-7.7) 02/07/24 20:08 Lymph # (Auto) 0.8 10^3/uL (0.8-4.8) 02/07/24 20:08 [place] # (Auto) 0.7 10^3/uL (0.2-0.9) 02/07/24 20:08 Eos # (Auto) 0.1 10^3/uL (0.0-0.8) 02/07/24 20:08 Baso # (Auto) 0.0 10^3/uL (0.0-0.1) 02/07/24 20:08 Nucleated RBC % (auto) 0 % 02/07/24 20:08 Nucleated RBCs # 0.0 /100WBC 02/07/24 20:08 Sodium 145 mmol/L (136-145) 02/07/24 20:08 Potassium 4.1 mmol/L (3.5-5.1) 02/07/24 20:08 Chloride 108 mmol/L (98-107) H 02/07/24 20:08 Carbon Dioxide 27 mmol/L (22-29) 02/07/24 20:08 Anion Gap 14.1 (5-19) 02/07/24 20:08 BUN 19 mg/dL (8-23) 02/07/24 20:08 Creatinine 0.9 mg/dL (0.5-0.9) 02/07/24 20:08 GFR Calculation Not Reportable 02/07/24 20:08 Glucose 122 mg/dL (65-115) H 02/07/24 20:08 Calculated Osmolality 304 mOsm/kg (285-295) H 02/07/24 20:08 Calcium 8.8 mg/dL (8.5-10.5) 02/07/24 20:08 Troponin T Baseline 17 ng/L (0-10) H 02/07/24 20:08 Troponin T 120 Minute 17.62 ng/L (0-10) H 02/07/24 22:04 Delta Troponin T 0.62 ABS# (0-10) 02/07/24 22:04 NT-Pro-B Natriuret Pep 3705 pg/mL (0-450) H 02/07/24 20:08 Procalcitonin 0.05 ng/mL (0-0.5) 02/07/24 01:32 Adenovirus (PCR) Not detected (NOT DETECT) 02/07/24 23:02 C. pneumoniae DNA (PCR) Not detected (NOT DETECT) 02/07/24 23:02 Coronavirus 229E (PCR) Not detected (NOT DETECT) 02/07/24 23:02 Human Metapneumovir PCR Not detected (NOT DETECT) 02/07/24 23:02 Influenza A (H1) PCR Not detected (NOT DETECT) 02/07/24 23:02 Influ A (H1/09) PCR Not detected (NOT DETECT) 02/07/24 23:02 Influenza A (H3) PCR Not detected (NOT DETECT) 02/07/24 23:02 Influenza Type A (PCR) Not detected (NOT DETECT) 02/07/24 23:02 Influenza Type B (PCR) Not detected (NOT DETECT) 02/07/24 23:02 M. pneumoniae (PCR) Not detected (NOT DETECT) 02/07/24 23:02 Parainfluenza 1 (PCR) Not detected (NOT DETECT) 02/07/24 23:02 Parainfluenza 2 (PCR) Not detected (NOT DETECT) 02/07/24 23:02 Parainfluenza 3 (PCR) Not detected (NOT DETECT) 02/07/24 23:02 Parainfluenza 4 (PCR) Not detected (NOT DETECT) 02/07/24 23:02 RSV Type A (PCR) Not detected (NOT DETECT) 02/07/24 23:02 RSV Type B (PCR) Not detected (NOT DETECT) 02/07/24 23:02 Entero/Rhino (PCR) Not detected (NOT DETECT) 02/07/24 23:02 SARS-CoV-2 (PCR) Not detected (NOT DETECT) 02/07/24 23:02 All radiology interpretation(s) finalized by discharge Discharge Plan Discharge Patient Disposition: Admitted As Inpatient Admit Provider: Vanesa Oliveira Clinical Impression: Hypoxia, Decompensated heart failure, Pneumonia Condition: Stable Coding Level of Care Code ED Underwriting Support Specialist for Kaci Norman
[2024-02-08] MEDS: lisinopril 5 mg Tablet 2.5 MG PO (05:26)
[2024-02-08] MEDS: metoprolol succinate ER (24 HR) 25 mg Tablet 12.5 MG PO (05:27)
[2024-02-08 06:03] LABS: Basophils % 0.3 %; Eosinophils % 0.2 %; Hematocrit 37.4 % (36-47); Lymphocytes # 0.5 10^3/uL (0.8-4.8); Lymphocytes % 5.6 %; Mean Corpuscular HGB Conc 31.3 g/dL (30-55); Mean Corpuscular Hemoglobin 29.3 pg (27-33); Mean Corpuscular Volume 93.7 fl (85-98); Mean Platelet Volume 13.4 fL (7.4-10.4); Monocytes # 0.3 10^3/uL (0.2-0.9); Monocytes % 2.6 %; Neutrophils # 8.65 10^3/uL (1.8-7.7); Nucleated Red Blood Cells % 0 %; Platelet Count 150 10^3/cmm (157-399); Red Blood Count 3.99 10^6/uL (3.85-5.65); Red Cell Distribution Width 12.9 % (12.1-15.1); White Blood Count 9.51 10^3/uL (3.29-11.43)
[2024-02-08 06:21] LABS: Anion Gap 16.9 (5-19); Blood Urea Nitrogen 17 mg/dL (8-23); Calcium 8.8 mg/dL (8.5-10.5); Carbon Dioxide 25 mmol/L (22-29); Chloride 105 mmol/L (98-107); Creatinine Clr Calc Pharmacy 35.8396; Glucose 135 mg/dL (65-115); Osmolality Calculated 300 mOsm/kg (285-295); Potassium 3.9 mmol/L (3.5-5.1); Sodium 143 mmol/L (136-145)
--- NOTE | 2024-02-08 09:14 | PM.MISC ---
Miscellaneous Note Note: I will continue IV diuresis Discontinue hydrochlorothiazide Plan to discharge by tomorrow Will do home oxygen evaluation by Friday Currently doing well Sitting at the bedside Looks euvolemic has positive crackles
[2024-02-08] MEDS: levothyroxine 25 mcg Tablet PO (09:20)
--- NOTE | 2024-02-08 13:03 | PC.NURSE ---
Pt had slight agitation this AM, yelling help me! help me! help me! RN plays 50s and [place] style music on speaker in room. Deescalates situation. Pt now singing and resting peacefully.
[2024-02-08] MEDS: cefTRIAXone 1,000 MG in sodium chloride 0.9% (plus) 50 ML 100 MG IV (17:05)
[2024-02-09] VITALS (7 sets, daily range): BP systolic 145–173; BP diastolic 68–85; PULSE 58–84; RESP 16–20; TEMP 36.3–37; O2SAT 92–96
[2024-02-09] MEDS: enoxaparin 40 mg/0.4 mL Syringe SUBCUT (02:08)
[2024-02-09] MEDS: FUROsemide 10 mg/mL SDV 2mL 20 MG IVP (02:08)
[2024-02-09] MEDS: lisinopril 5 mg Tablet 2.5 MG PO (06:21)
[2024-02-09] MEDS: levothyroxine 25 mcg Tablet PO (06:21)
[2024-02-09] MEDS: metoprolol succinate ER (24 HR) 25 mg Tablet 12.5 MG PO (06:21)
[2024-02-09 07:18] LABS: Basophils % 0.1 %; Eosinophils % 0.2 %; Lymphocytes % 7.4 %; Mean Corpuscular Hemoglobin 29.5 pg (27-33); Mean Corpuscular Volume 92.2 fl (85-98); Mean Platelet Volume 13.2 fL (7.4-10.4); Monocytes # 0.9 10^3/uL (0.2-0.9); Monocytes % 6.8 %; Neutrophils # 11.77 10^3/uL (1.8-7.7); Nucleated Red Blood Cells % 0 %; Platelet Count 86 10^3/cmm (157-399); Red Blood Count 4.34 10^6/uL (3.85-5.65); Red Cell Distribution Width 12.6 % (12.1-15.1); White Blood Count 13.86 10^3/uL (3.29-11.43)
[2024-02-09 07:30] LABS: Blood Urea Nitrogen 31 mg/dL (8-23); Calcium 9.1 mg/dL (8.5-10.5); Carbon Dioxide 26 mmol/L (22-29); Chloride 102 mmol/L (98-107); Creatinine Clr Calc Pharmacy 28.4533; Glucose 81 mg/dL (65-115); Osmolality Calculated 304 mOsm/kg (285-295); Sodium 144 mmol/L (136-145)
[2024-02-09 07:31] LABS: Anion Gap 19.7 (5-19); Potassium 3.7 mmol/L (3.5-5.1)
--- NOTE | 2024-02-09 09:21 | PC.CHAP ---
Pastoral Care Encounter/Spiritual Assessment Type of Contact [] Declined cuff matcher visit [] Patient/Family/Request visit [] Outpatient visit [] Follow-up visit [] Physician referral [] Code/Alert [x] Routine visit [] Staff referral [] Actively dying [] Patient sleeping [] Family support [] [] Out of room [] Palliative care [] [] Receiving care in room [] Pre-surgical visit [] Trauma [] Long length of stay [] ICU visit [] Other: Relational/Emotional Strength [] Patient feels connected with others/family/visitors/staff [] Distress [] Loneliness/isolation [] Abandonment Spirituality of Patient [x] Person of Isamar [] Attends Islam of their Isamar [x] Believes in Prayer [] Reads Bible or Mosque materials [] There are Spiritual issues to be addressed Nursing Surgical Services Director Interventions [x] Prayer [x] Active listening [] Non-anxious presence [] Spiritual/emotional support [] Crisis/trauma care [] Spiritual counseling [] Bereavement support [] Provided bereavement packet [x] Provided Bible/devotional materials [] Provided toy/stuffed animal, coloring book to patient or family member [] Provided Communion [] Anointing/[place] [] Salvation [x] Completed spiritual assessment [] Other: Impact on Illness or Injury [] Angry [] Fearful [] Anxious [] Often cries [] Exhaustion [] Unable to work [] Unable to attend muslim [] Unable to walk/stand [] Unable to read [] Unable to drive [] Unable to eat/drink [] Unable to sleep [] Unable to be with family [] Patient intubated [] Other: Summary Time spent with patient 10 min
--- NOTE | 2024-02-09 10:56 | PM.DCS ---
Discharge Providers Date of Admission: 02/07/24 23:24 Date of Discharge: February 09, 2024 Attending Provider at Admission: Vanesa Oliveira MD Attending Provider at Discharge: Marily Schmidt MD Primary Care Provider: Ralph Doty Diagnoses at Discharge Discharge Diagnosis (1) Decompensated heart failure: Status: Acute (2) Hypoxia: Status: Acute (3) Pneumonia: Status: Acute (4) Hypertension: Status: Acute (5) UTI (urinary tract infection): Status: Acute Reason for Visit Reason for Visit: Sob bp high has afib wheezy Hospital Course Hospital Course 88-year female who was admitted to the hospital for management of acute hypoxia related to diastolic CHF exacerbation, echo was done which did not show signal changes as compared to previous report, she has grade 2 diastolic function she was diuresed aggressively in the ER and during hospitalization, she was given antibiotics empirically she remained afebrile however leukocytosis fluctuated between 11-13,000. Cultures remain negative Patient has thrombocytopenia as well however there is no sign of petechiae or any active sign of GI bleed or hemorrhage I would like to give her referral to get her CBC checked within few days to rule out laboratory at her she received Lovenox as DVT prophylaxis in the hospital At the time of discharge patient is euvolemic crackles improved, she is on room air able to walk on her own without any difficulty, patient stating that she has chronic diarrhea she has never gone for screening colonoscopies in the past, she is also not interested in getting her knee surgery as per the family At the time of discharge I will add Lasix 20 mg on as-needed basis along potassium supplementation I will discontinue hydrochlorothiazide. Will ask her to increase the dose of lisinopril to 10 mg Physical Exam Narrative: Signs of fluid overload improved No active crackles Currently on room air Hypertensive Pleasant cooperative GCS 15 Nonfocal neuroexam able to walk without any difficulty Discharge Data Studies Completed and Pending Completed Studies During Hospitalization Category Date Time Status XR chest 1V portable [id number] Stat Exams 02/07/24 19:56 Completed CV. echo complete* [id number] Routine Ultrasound 02/08/24 00:29 Completed Pending at discharge Category Date Time Status Blood Culture Stat Lab 02/07/24 23:00 Results Urine Culture Stat Lab 02/07/24 23:53 Results Radiology Impressions Chest X-Ray 02/07/24 19:56 IMPRESSION: Cardiomegaly, central vascular congestion, pulmonary edema, and small effusions. Correlate with CHF. Atypical infection could potentially have this appearance. Laboratory Results WBC 13.86 10^3/uL (3.29-11.43) H 02/09/24 06:55 RBC 4.34 10^6/uL (3.85-5.65) 02/09/24 06:55 Hgb 12.80 g/dL (11.27-16.99) 02/09/24 06:55 Hct 40.0 % (36-47) 02/09/24 06:55 MCV 92.2 fl (85-98) 02/09/24 06:55 MCH 29.5 pg (27-33) 02/09/24 06:55 MCHC 32.0 g/dL (30-55) 02/09/24 06:55 RDW 12.6 % (12.1-15.1) 02/09/24 06:55 Plt Count 86 10^3/cmm (157-399) L D 02/09/24 06:55 MPV 13.2 fL (7.4-10.4) H 02/09/24 06:55 Neut % (Auto) 85.0 % 02/09/24 06:55 Lymph % (Auto) 7.4 % 02/09/24 06:55 [place] % (Auto) 6.8 % 02/09/24 06:55 Eos % (Auto) 0.2 % 02/09/24 06:55 Baso % (Auto) 0.1 % 02/09/24 06:55 Neut # (Auto) 11.77 10^3/uL (1.8-7.7) H 02/09/24 06:55 Lymph # (Auto) 1.0 10^3/uL (0.8-4.8) 02/09/24 06:55 [place] # (Auto) 0.9 10^3/uL (0.2-0.9) 02/09/24 06:55 Eos # (Auto) 0.0 10^3/uL (0.0-0.8) 02/09/24 06:55 Baso # (Auto) 0.0 10^3/uL (0.0-0.1) 02/09/24 06:55 Nucleated RBC % (auto) 0 % 02/09/24 06:55 Nucleated RBCs # 0.0 /100WBC 02/09/24 06:55 Sodium 144 mmol/L (136-145) 02/09/24 06:55 Potassium 3.7 mmol/L (3.5-5.1) 02/09/24 06:55 Chloride 102 mmol/L (98-107) 02/09/24 06:55 Carbon Dioxide 26 mmol/L (22-29) 02/09/24 06:55 Anion Gap 19.7 (5-19) H 02/09/24 06:55 BUN 31 mg/dL (8-23) H 02/09/24 06:55 Creatinine 1.0 mg/dL (0.5-0.9) H 02/09/24 06:55 GFR Calculation Not Reportable 02/09/24 06:55 Glucose 81 mg/dL (65-115) 02/09/24 06:55 Calculated Osmolality 304 mOsm/kg (285-295) H 02/09/24 06:55 Calcium 9.1 mg/dL (8.5-10.5) 02/09/24 06:55 Troponin T Baseline 17 ng/L (0-10) H 02/07/24 20:08 Troponin T 120 Minute 17.62 ng/L (0-10) H 02/07/24 22:04 Delta Troponin T 0.62 ABS# (0-10) 02/07/24 22:04 Troponin T Hi Sens 6Hr 16.29 ng/L (0-10) H 02/08/24 01:32 Troponin T Hi Sens 6Hr Delta -0.71 ng/L (0-12) L 02/08/24 01:32 NT-Pro-B Natriuret Pep 3705 pg/mL (0-450) H 02/07/24 20:08 Procalcitonin 0.05 ng/mL (0-0.5) 02/07/24 01:32 Urine Color Yellow (Yellow) 02/07/24 23:53 Urine Appearance Clear (CLEAR) 02/07/24 23:53 Urine pH 5 (5-7) 02/07/24 23:53 Ur Specific [place] 1.020 (1.005-1.030) 02/07/24 23:53 Urine Protein Neg (Negative) 02/07/24 23:53 Urine Glucose (UA) Norm (Normal) 02/07/24 23:53 Urine Ketones Negative (Negative) 02/07/24 23:53 Urine Blood 2+ (Negative) H 02/07/24 23:53 Urine Nitrate Negative (Negative) 02/07/24 23:53 Urine Bilirubin Neg (Negative) 02/07/24 23:53 Urine Urobilinogen Neg mg/dL (Negative) 02/07/24 23:53 Ur Leukocyte Esterase 1+ (Negative) H 02/07/24 23:53 Urine RBC 0-4 /hpf (0-2) H 02/07/24 23:53 Urine WBC 5-10 /hpf (0-5) H 02/07/24 23:53 Ur Squamous Epith Cells 0-4 /hpf (0-5) H 02/07/24 23:53 Amorphous Sediment Trace /hpf 02/07/24 23:53 Urine Bacteria 1+ /hpf (NONE) H 02/07/24 23:53 Urine Mucus Trace /hpf 02/07/24 23:53 Adenovirus (PCR) Not detected (NOT DETECT) 02/07/24 23:02 C. pneumoniae DNA (PCR) Not detected (NOT DETECT) 02/07/24 23:02 Coronavirus 229E (PCR) Not detected (NOT DETECT) 02/07/24 23:02 Human Metapneumovir PCR Not detected (NOT DETECT) 02/07/24 23:02 Influenza A (H1) PCR Not detected (NOT DETECT) 02/07/24 23:02 Influ A (H1/09) PCR Not detected (NOT DETECT) 02/07/24 23:02 Influenza A (H3) PCR Not detected (NOT DETECT) 02/07/24 23:02 Influenza Type A (PCR) Not detected (NOT DETECT) 02/07/24 23:02 Influenza Type B (PCR) Not detected (NOT DETECT) 02/07/24 23:02 M. pneumoniae (PCR) Not detected (NOT DETECT) 02/07/24 23:02 Parainfluenza 1 (PCR) Not detected (NOT DETECT) 02/07/24 23:02 Parainfluenza 2 (PCR) Not detected (NOT DETECT) 02/07/24 23:02 Parainfluenza 3 (PCR) Not detected (NOT DETECT) 02/07/24 23:02 Parainfluenza 4 (PCR) Not detected (NOT DETECT) 02/07/24 23:02 RSV Type A (PCR) Not detected (NOT DETECT) 02/07/24 23:02 RSV Type B (PCR) Not detected (NOT DETECT) 02/07/24 23:02 Entero/Rhino (PCR) Not detected (NOT DETECT) 02/07/24 23:02 SARS-CoV-2 (PCR) Not detected (NOT DETECT) 02/07/24 23:02 Vitals Last Vital Signs Temp 97.7 F 02/09/24 08:00 Pulse 77 02/09/24 08:00 Resp 20 H 02/09/24 08:00 BP 145/85 02/09/24 08:00 Pulse Ox 95 02/09/24 08:00 O2 Del Method Room Air 02/08/24 16:58 O2 Flow Rate 1.5 02/08/24 00:55 Discharge Plan Discharge Patient Disposition: Home Condition: Stable Prescriptions: New amoxicillin-pot clavulanate 875-125 mg tablet 1 tab PO BID Qty: 6 0RF potassium chloride 20 mEq tablet extended release 20 meq PO DAILY PRN (Reason: Only with Lasix) Qty: 30 3RF furosemide [Lasix] 20 mg tablet 20 mg PO DAILY PRN (Reason: >3 pounds weight gain or cannot lay flat) Qty: 30 1RF Continued levothyroxine 25 mcg capsule 25 mcg PO QAM metoprolol succinate 25 mg tablet extended release 24 hr 12.5 mg PO QAM mirtazapine 7.5 mg tablet 7.5 mg PO BEDTIME PRN (Reason: Anxiety) pantoprazole [Protonix] 40 mg tablet,delayed release (DR/EC) 40 mg PO QAM magnesium oxide 400 mg magnesium Tablet 200 mg PO DAILY Changed lisinopril 5 mg tablet 10 mg PO QAM Qty: 30 0RF Discontinued hydrochlorothiazide 12.5 mg capsule 12.5 mg PO QAM PRN (Reason: Blood Pressure) Discharge Orders: Discharge Order (Routine); Ordered 02/09/24 Ordered By: Marily Schmidt Other Ambulatory Orders: Complete Blood Count w/Auto (Routine) Timeframe: 1 Week Location: Determined by Patient Ordered By: Marily Schmidt Discharge Diet: Cardiac Discharge Activity: Increase activity as tolerated Patient Instructions: Opioid Safety Activity Restrictions/Additional Instructions: I have discontinued hydrochlorothiazide, for your blood pressure I have increased the dose of lisinopril up to 10 mg daily, target blood pressure 130 to 140 mmHg systolic and diastolic 80 to 90 mmHg, at your age we are not expecting you to be at an ideal blood pressure below 130/80 mmhg If you get short of breath, cannot lay flat or noticed more than 3 pounds weight gain in 24 hours or noticed leg swelling you can take Lasix 20 mg, please remember to take potassium supplement only on days when you are taking Lasix You do not have to take potassium &Lasix on daily basis Low-sodium diet less than 2 g a day would be ideal which will consider cardiac diet You were treated as diastolic congestive heart failure in the hospital I am giving you referral to get your blood work done after a week just to keep an eye on your white count and platelets Discharge Attestations Time Spent in Discharge Care*: greater than 30 min Quality Metrics Clinical Quality Measures [ No reported AMI, CVA or VTE this stay] Coding Level of Care Code Acute Code for Chg Fwd Diagnoses Decompensated heart failure I50.9 Hypoxia R09.02 Pneumonia J18.9 Hypertension I10 UTI (urinary tract infection) N39.0
== END 2024-02-09 12:53 | disposition home or self-care (01) | DRG 291 ==
LOC: ER 22:32 → MEDSURG 23:24
PROVIDERS: Admitting Provider Student in an Organized Health Care Education/Training Program; Emergency Provider Emergency Medicine; PCP Family Medicine; Visit Provider Internal Medicine
DX: I11.0 Hypertensive heart disease with heart failure (principal); I50.33 Acute on chronic diastolic (congestive) heart failure; J18.9 Pneumonia, unspecified organism; N39.0 Urinary tract infection, site not specified; D69.6 Thrombocytopenia, unspecified; K52.9 Noninfective gastroenteritis and colitis, unspecified
CPT/HCPCS: 12345; 36415; 71045; 80048; 81001; 83880; 84145; 84484; 85025; 87040; 87077; 87086; 87186; 87205; 87486; 87581; 87633; 93005; 93306; 94640; 94760; 96365; 96372; 96375; 99285; J0696; J1650; J1940; J2919

== ENCOUNTER 2024-06-25 17:32 | Observation (INO) | payer MEDICARE, SELFPAY ==
--- NOTE | 2024-06-25 17:38 | ECG_ITS ---
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 Measurements Intervals [place] Rate: 116 P: 0 OK: 0 QRS: 75 QRSD: 117 T: 51 QT: 329 QTc: 458 Interpretive Statements Atrial fibrillation with rapid ventricular rate and frequent premature ventricular ectopics (PVCs). INCOMPLETE RIGHT BUNDLE BRANCH BLOCK SEPTAL MYOCARDIAL INFARCTION , OF INDETERMINATE AGE Compared to previous ECG Rhythm is changed from normal sinus rhythm to atrial fibrillation Electronically Signed On 06-25-2024 17:44:57 EMBEDDED CASE MANAGER by David Cohen M.D. [email or web address]
[2024-06-25 17:42] VITALS: BP 129/72; PULSE 116; RESP 18; TEMP 36.8; O2SAT 95
--- NOTE | 2024-06-25 18:06 | XRR_ITS ---
PROCEDURE INFORMATION: Exam: XR Chest Exam date and time: 06/25/2024 6:09 PM Age: 88 years old Clinical indication: Dyspnea; Additional info: Shortness of breath TECHNIQUE: Imaging protocol: Radiologic exam of the chest. Views: 1 view. COMPARISON: CR XR chest 1V portable [id number] 02/07/2024 8:32 PM FINDINGS: Lungs: No focal consolidation. Interstitial prominence. Pleural spaces: Blunting of the bilateral costophrenic angles, likely reflecting bilateral pleural effusions and/or atelectasis. Heart/Mediastinum: Cardiomegaly, unchanged. Bones/joints: No acute abnormality. XR/XR chest 1V portable [id number] IMPRESSION: Blunting of the bilateral costophrenic angles, likely reflecting bilateral pleural effusions and/or atelectasis. Interstitial prominence, may be related to vascular congestion, infiltrate not excluded.
[2024-06-25 18:41] LABS: Basophils % 0.6 %; Eosinophils # 0.2 10^3/uL (0.0-0.8); Eosinophils % 3.4 %; Hematocrit 35.9 % (36-47); Lymphocytes # 0.7 10^3/uL (0.8-4.8); Lymphocytes % 13.1 %; Mean Corpuscular HGB Conc 30.9 g/dL (30-55); Mean Corpuscular Hemoglobin 29.1 pg (27-33); Mean Platelet Volume 12.6 fL (7.4-10.4); Monocytes # 0.6 10^3/uL (0.2-0.9); Monocytes % 12.3 %; Neutrophils # 3.54 10^3/uL (1.8-7.7); Neutrophils % 70.4 %; Nucleated Red Blood Cells % 0 %; Platelet Count 153 10^3/cmm (157-399); Red Blood Count 3.82 10^6/uL (3.85-5.65); Red Cell Distribution Width 13.3 % (12.1-15.1); White Blood Count 5.03 10^3/uL (3.29-11.43)
[2024-06-25 18:57] LABS: Troponin(5th) Baseline 13 ng/L (0-10)
--- NOTE | 2024-06-25 19:03 | ED_ITS ---
HPI - Arrhythmia/Palpitations 2 General: Chief Complaint: Arrhythmia/Palpitations Stated Complaint: chest pains and SOB Time Seen by Provider: 06/25/24 18:01 History of Present Illness: 88-year-old female with a history of con gestive heart failure, hypothyroidism and hypertension who presents emergency room with shortness of breath and palpitations. Her blood pressure has been up and down. Family states her heart rate has been as high as 150 at home. She has no history of atrial fibrillation. She is not on any blood thinners. She says she has a tightness in her chest but no chest pain. No lower extremity swelling but her abdomen feels a bit distended. No fevers. No cough. No altered mental status. No focal motor deficits. Related Data Home Medications Medication Instructions Recorded Confirmed levothyroxine 25 mcg capsule 25 mcg PO QAM 05/05/23 02/08/24 metoprolol succinate 25 mg 12.5 mg PO QAM 05/05/23 02/08/24 tablet,extended release 24 hr mirtazapine 7.5 mg tablet 7.5 mg PO BEDTIME PRN Anxiety 05/05/23 02/08/24 pantoprazole 40 mg tablet,delayed 40 mg PO QAM 05/05/23 02/08/24 release (Protonix) magnesium oxide 200 mg PO DAILY 02/08/24 02/08/24 Previous Rx's Medication Instructions Recorded amoxicillin 875 mg-potassium 1 tab PO BID #6 tabs 02/09/24 clavulanate 125 mg tablet furosemide 20 mg tablet (Lasix) 20 mg PO DAILY PRN >3 pounds 02/09/24 weight gain or cannot lay flat #30 tabs lisinopril 5 mg tablet 10 mg (2 x 5 mg) PO QAM #30 tabs 02/09/24 potassium chloride 20 mEq 20 meq PO DAILY PRN Only with 02/09/24 tablet,extended release Lasix #30 tabs Allergies Allergy/AdvReac Type Severity Reaction Status Date / Time Sulfa (Sulfonamide Allergy Unknown Verified 02/07/24 19:56 Antibiotics) Review of Systems 2 Narrative: Constitutional symptoms: Negative except as documented in HPI. Skin symptoms: Negative except as documented in HPI. Eye symptoms: Negative except as documented in HPI. ENMT symptoms: Negative except as documented in HPI. Respiratory symptoms: Negative except as documented in HPI. Cardiovascular symptoms: Negative except as documented in HPI. Gastrointestinal symptoms: Negative except as documented in HPI. Genitourinary symptoms: Negative except as documented in HPI. Musculoskeletal symptoms: Negative except as documented in HPI. Neurologic symptoms: Negative except as documented in HPI. Psychiatric symptoms: Negative except as documented in HPI. Endocrine symptoms: Negative except as documented in HPI. PFSH ED 2 PFSH: Medical History RBBB CHF (congestive heart failure), NYHA class III Family History Daughter Diabetes Denies family history of CAD (coronary artery disease) Clotting disorder Dementia Hyperlipidemia Psychiatric illness Chronic kidney disease (CKD) Suicide Anesthesia complication Bleeding disorder Family history of premature coronary artery disease Lung disease Cancer Hypertension Stroke Physical Exam 2 Narrative: EXAM NARRATIVE: General: Alert, no acute distress. Skin: Warm, dry. Head: Normocephalic, atraumatic. Neck: Supple, trachea midline. Eye: Extraocular movements are intact. Ears, nose, mouth and throat: mucosa moist. Cardiovascular: Tachycardic, irregularly irregular. Normal peripheral perfusion. Respiratory: Lungs are clear to auscultation, respirations are non-labored, breath sounds are equal, Symmetrical chest wall expansion. Gastrointestinal: Soft, Nontender, Non distended Musculoskeletal: Normal ROM, no deformity. Neurological: Alert and oriented, No focal neurological deficit observed. Psychiatric: Cooperative, appropriate mood & affect. Course 2 Vital Signs: Vital signs: Vital Signs Temperature 98.2 F 06/25/24 17:42 Pulse Rate 112 H 06/25/24 20:00 Respiratory Rate 20 H 06/25/24 20:00 Blood Pressure 126/97 06/25/24 20:00 Pulse Oximetry 94 06/25/24 20:00 Oxygen Delivery Me thod Room Air 06/25/24 20:00 MDM - Arrhythmia/Palpitations Medical Decision Making Differential diagnosis for patient with shortness of breath includes but is not limited to and based on the above HPI, review of systems and physical exam: Pneumonia. Bronchitis. Asthma or COPD with acute exacerbation. Acute coronary syndrome / CT. Pulmonary embolism. Anxiety. Congestive heart failure. Viral infections including influenza and Covid-19. Atrial fibrillation. Anxiety. Pleural effusion. Pneumothorax. Orders placed to evaluate differential diagnosis based on the above differential, HPI and physical exam EKG: Time 1738. Rate 116. Atrial fibrillation with rapid ventricular response, nonspecific ST abnormality, frequent PVCs, This was reviewed and interpreted by myself the ER physician At 1741. Patient does not have a known history of atrial fibrillation. Repeat EKG: atrial fibrillation with rapid ventricular response, No ST-T changes, no ectopy, This was reviewed and interpreted by myself the ER physician at 2040. No significant changes from previous EKG. Done in the emergency room today. Chest x-ray: Bilateral pleural effusions. Interstitial prominence may be related to vascular congestion. This fits with history and physical. That she has heart failure. This was reviewed and interpreted by myself the emergency room physician. I also reviewed the radiology report. Lab Review: Laboratory results were reviewed and interpreted by myself the emergency room physician. No leukocytosis. No anemia. Platelets are little low at 150. BUN/creatinine are at baseline of 19 and 1.0. Urinalysis is negative for infection. Troponin is negative. proBNP is elevated over her baseline at 5500. Serial troponins are stable at around 14. I reviewed the patient's medical record. Reexamination: Patient's heart rate has been quite variable. She has bounced between 70 and 150. She seems to be most of the time around 119. Given that she is in early heart failure without swelling and that her heart rate is not well-controlled and she does not have a known history of A-fib we have decided for admission. She has had no altered mental status. She is not requiring any oxygen. Consultation: I spoke with Dr. Schmidt who is on-call for the hospitalist service who agrees to admission. Assessment and plan: A-fib with RVR Acute on chronic congestive heart failure ?IV Lasix 40 mg and 5 mg IV metoprolol here in the emergency room. -I discussed the patient with the hospitalist on-call who is admitting the patient. - Discussed findings and plan with patient. Answered any questions. - All laboratory values were reviewed and interpreted personally by myself, the ER physician - All imaging was reviewed and interpreted personally by myself, the ER physician. - Evaluation and treatment of this problem were appropriate in the emergency setting Lab Data 06/25/24 18:33 06/25/24 18:33 Radiology Impressions Chest X-Ray 06/25/24 18:06 IMPRESSION: Blunting of the bilateral costophrenic angles, likely reflecting bilateral pleural effusions and/or atelectasis. Interstitial prominence, may be related to vascular congestion, infiltrate not excluded. Laboratory Results WBC 5.03 10^3/uL (3.29-11.43) 06/25/24 18:33 RBC 3.82 10^6/uL (3.85-5.65) L 06/25/24 18: Hgb 11.10 g/dL (11.27-16.99) L 06/25/24 18:33 Hct 35.9 % (36-47) L 06/25/24 18:33 MCV 94.0 fl (85-98) 06/25/24 18: MCH 29.1 pg (27-33) 06/25/24 18: MCHC 30.9 g/dL (30-55) 06/25/24 18: RDW 13.3 % (12.1-15.1) 06/25/24 18: Plt Count 153 10^3/cmm (157-399) L 06/25/24 18: MPV 12.6 fL (7.4-10.4) H 06/25/24 18: Neut % (Auto) 70.4 % 06/25/24 18: Lymph % (Auto) 13.1 % 06/25/24 18: [place] % (Auto) 12.3 % 06/25/24 18:33 Eos % (Auto) 3.4 % 06/25/24 18: Baso % (Auto) 0.6 % 06/25/24 18: Neut # (Auto) 3.54 10^3/uL (1.8-7.7) 06/25/24 18: Lymph # (Auto) 0.7 10^3/uL (0.8-4.8) L 06/25/24 18: [place] # (Auto) 0.6 10^3/uL (0.2-0.9) 06/25/24 18: Eos # (Auto) 0.2 10^3/uL (0.0-0.8) 06/25/24 18: Baso # (Auto) 0.0 10^3/uL (0.0-0.1) 06/25/24 18:33 Nucleated RBC % (auto) 0 % 06/25/24 18:33 Nucleated RBCs # 0.0 /100WBC 06/25/24 18:33 Sodium 140 mmol/L (136-145) 06/25/24 18:33 Potassium 4.2 mmol/L (3.5-5.1) 06/25/24 18:33 Chloride 104 mmol/L (98-107) 06/25/24 18:33 Carbon Dioxide 26 mmol/L (22-29) 06/25/24 18:33 Anion Gap 14.2 (5-19) 06/25/24 18:33 BUN 19 mg/dL (8-23) 06/25/24 18:33 Creatinine 1.0 mg/dL (0.5-0.9) H 06/25/24 18:33 GFR Calculation Not Reportable 06/25/24 18:33 Glucose 94 mg/dL (65-115) 06/25/24 18:33 Calculated Osmolality 292 mOsm/kg (285-295) 06/25/24 18:33 Calcium 8.4 mg/dL (8.5-10.5) L 06/25/24 18:33 Magnesium 2.0 mg/dL (1.7-2.3) 06/25/24 18:33 Total Bilirubin 0.7 mg/dL (0.15-1.2) 06/25/24 18:33 AST 15 U/L (0-32) 06/25/24 18:33 ALT 12 U/L (0-33) 06/25/24 18:33 Alkaline Phosphatase 84 U/L (35-105) 06/25/24 18:33 Troponin T Baseline 13 ng/L (0-10) H 06/25/24 18:33 Troponin T 120 Minute 14.69 ng/L (0-10) H 06/25/24 20:29 Delta Troponin T 1.69 ABS# (0-10) 06/25/24 20:29 NT-Pro-B Natriuret Pep 5358 pg/mL (0-450) H 06/25/24 18:33 Total Protein 5.4 g/dL (6.6-8.7) L 06/25/24 18:33 Albumin 3.7 g/dL (3.5-5.2) 06/25/24 18:33 Globulin 1.7 g/dL (1.3-4.6) 06/25/24 18:33 Urine Color Yellow (Yellow) 06/25/24 18:55 Urine Appearance Clear (CLEAR) 06/25/24 18:55 Urine pH 5.0 (5-7) 06/25/24 18:55 Ur Specific [place] 1.014 (1.005-1.030) 06/25/24 18:55 Urine Protein Negative (Negative) 06/25/24 18:55 Urine Glucose (UA) Negative (Normal) 06/25/24 18:55 Urine Ketones Negative (Negative) 06/25/24 18:55 Urine Blood Negative (Negative) 06/25/24 18: Urine Nitrate Negative (Negative) 06/25/24 18: Urine Bilirubin Negative (Negative) 06/25/24 18:55 Urine Urobilinogen 0.2 mg/dL (Negative) 06/25/24 18:55 Ur Leukocyte Esterase Trace (Negative) A 06/25/24 18:55 Urine RBC 0-2 /hpf (0-2) 06/25/24 18:55 Urine WBC 0-5 /hpf (0-5) 06/25/24 18:55 Ur Squamous Epith Cells 0-5 /hpf (0-5) 06/25/24 18:55 Amorphous Sediment Not Reportable 06/25/24 18:55 Urine Bacteria None seen /hpf (NONE) 06/25/24 18:55 Hyaline Casts 0-4 /lpf H 06/25/24 18:55 All radiology interpretation(s) finalized by discharge Discharge Plan Discharge Patient Disposition: Admitted As Inpatient Clinical Impression: Acute on chronic congestive heart failure, Atrial fibrillation with rapid ventricular response Condition: Stable Coding Level of Care Code ED Chinese Language Professor for Kaci Norman
[2024-06-25 19:14] LABS: Bilirubin Urine Negative (Negative); Blood Urine Negative (Negative); Glucose Urine UA Negative (Normal); Ketones Urine Negative (Negative); Leukocyte Esterase Urine Trace (Negative); Nitrate Urine Negative (Negative); Protein Urine Negative (Negative); Specific Gravity, Urine 1.014 (1.005-1.030); Urine Appearance Clear (CLEAR); Urine Color Yellow (Yellow); Urobilinogen Urine 0.2 mg/dL (Negative)
[2024-06-25 19:20] LABS: Bacteria Urine None Seen /hpf; Hyaline Casts Urine 0-4 /lpf; RBC Urine 0-2 /hpf (0-2); Squamous Epithelial Cell Urine 0-5 /hpf (0-5); WBC Urine 0-5 /hpf (0-5)
[2024-06-25 19:52] LABS: Alanine Aminotransferase 12 U/L (0-33); Albumin Level 3.7 g/dL (3.5-5.2); Alkaline Phosphatase 84 U/L (35-105); Anion Gap 14.2 (5-19); Aspartate Amino Transferase 15 U/L (0-32); Blood Urea Nitrogen 19 mg/dL (8-23); Calcium 8.4 mg/dL (8.5-10.5); Carbon Dioxide 26 mmol/L (22-29); Chloride 104 mmol/L (98-107); Creatinine Clr Calc Pharmacy 28.1255; Globulin 1.7 g/dL (1.3-4.6); Glucose 94 mg/dL (65-115); NT Pro B Type Natriuretic Pept 5358 pg/mL (0-450); Osmolality Calculated 292 mOsm/kg (285-295); Potassium 4.2 mmol/L (3.5-5.1); Sodium 140 mmol/L (136-145); Total Bilirubin 0.7 mg/dL (0.15-1.2); Total Protein 5.4 g/dL (6.6-8.7)
[2024-06-25 20:00] VITALS: BP 126/97; PULSE 112; RESP 20; O2SAT 94
--- NOTE | 2024-06-25 20:06 | ECG_ITS ---
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 Measurements Intervals [place] Rate: 115 P: 0 TN: 0 QRS: 7 QRSD: 126 T: 2 QT: 337 QTc: 466 Interpretive Statements ATRIAL FIBRILLATION WITH RAPID VENTRICULAR RESPONSE WITH ABERRANT CONDUCTION OR VENTRICULAR PREMATURE COMPLEXES RIGHT BUNDLE BRANCH BLOCK Compared to ECG 06/25/2024 17:38:55 Aberrant conduction of supraventricular beat(s) now present Right bundle-branch block now present Electronically Signed On 06-26-2024 16:03:27 [employer]SPORT MEDIC by David Cohen M.D. [email or web address]
[2024-06-25 20:55] LABS: Troponin 5 2HR 14.69 ng/L (0-10); Troponin 5 2HR Delta 1.69 ABS# (0-10)
[2024-06-25 21:14] LABS: D Dimer 0.71 ug/mLFEU (0-0.59)
--- NOTE | 2024-06-25 21:29 | P.HP_ITS ---
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 Patient is stating that her symptoms are 24 hours before her arrival in the ER with orthopnea PND coughing and palpitations. She has not noticed any fever but endorsing cough. In the ER she is diagnosed with new onset A-fib with RVR new, CHF exacerbation, hypertensive urgency She has received Lasix 40 mg along metoprolol I have given her digoxin for her A-fib RVR Review of Systems 2 ENMT: Denies: throat pain Card: Reports: palpitations; Denies: chest pain Resp: Reports: dyspnea GI: Denies: abdominal pain : Denies: flank pain Musc: Denies: neck pain Skin/Breast: Denies: rash Medications/Allergies Home Medications Medication Instructions Recorded Confirmed Last Taken Type levothyroxine 25 mcg capsule 25 mcg PO QAM 05/05/23 02/08/24 02/07/24 10:00 History metoprolol succinate 25 mg 12.5 mg PO QAM 05/05/23 02/08/24 02/07/24 10:00 History tablet,extended release 24 hr mirtazapine 7.5 mg tablet 7.5 mg PO BEDTIME PRN Anxiety 05/05/23 02/08/24 02/07/24 10:00 History pantoprazole 40 mg tablet,delayed 40 mg PO QAM 05/05/23 02/08/24 02/07/24 10:00 History release (Protonix) magnesium oxide 200 mg PO DAILY 02/08/24 02/08/24 02/07/24 10:00 History amoxicillin 875 mg-potassium 1 tab PO BID #6 tabs 02/09/24 Unknown Rx clavulanate 125 mg tablet furosemide 20 mg tablet (Lasix) 20 mg PO DAILY PRN >3 pounds 02/09/24 Unknown Rx weight gain or cannot lay flat #30 tabs lisinopril 5 mg tablet 10 mg (2 x 5 mg) PO QAM #30 tabs 02/09/24 Unknown Rx potassium chloride 20 mEq 20 meq PO DAILY PRN Only with 02/09/24 Unknown Rx tablet,extended release Lasix #30 tabs Allergies Allergy/AdvReac Type Severity Reaction Status Date / Time Sulfa (Sulfonamide Allergy Unknown Verified 02/07/24 19:56 Antibiotics) PFSH Acute 2 PFSH: Medical History UTI (urinary tract infection) Hypertension Pneumonia Hypoxia Decompensated heart failure RBBB CHF (congestive heart failure), NYHA class III Family History Daughter Diabetes Denies family history of CAD (coronary artery disease) Clotting disorder Dementia Hyperlipidemia Psychiatric illness Chronic kidney disease (CKD) Suicide Anesthesia complication Bleeding disorder Family history of premature coronary artery disease Lung disease Cancer Hypertension Stroke Vitals/I&O/Wt Last Vital Signs Temp 98.2 F 06/25/24 17:42 Pulse 112 H 06/25/24 20:00 Resp 20 H 06/25/24 20:00 BP 126/97 06/25/24 20:00 Pulse Ox 94 06/25/24 20:00 O2 Del Method Room Air 06/25/24 20:00 Weight last 48 hrs Weight 48.534 kg Physical Exam 2 Narrative: Patient clinically does not look fluid overloaded Currently on room air A-fib RVR Hypertensive GCS 15 A-fib RVR S1, S2 is variable Abdomen soft Bilateral breath sounds with mild crackles at the base of the lungs Pleasant and cooperative Nonfocal neuroexam Data 06/25/24 18:33 06/25/24 18:33 A&P Assessment and plan (1) CHF (congestive heart failure), NYHA class III: (2) Acute on chronic congestive heart failure: (3) Atrial fibrillation with rapid ventricular response: (4) Dizziness: Plan Acute preserved ejection fraction heart failure exacerbation It seems related to hypertensive urgency and A-fib RVR Will started on IV Lasix Replenish potassium Will give her digoxin 1 dose for now I would not repeat echo as it was done recently this year No active chest pain Hypertensive urgency Increase the dose of lisinopril to optimal dose 20 mg twice daily, patient will need Lasix, I would increase the dose of metoprolol to 50 mg twice daily A-fib RVR new onset CHADVASC score Has bled score Patient is stating that she is afraid that she will fall and she has fallen in her kitchen, 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 She is not wanting to continue anticoagulation but would like to discuss with the physician at the time of discharge for now I am putting her on therapeutic Lovenox Check magnesium, keep potassium above 4 magnesium of 2 Patient consider herself fairly active for her age D-dimer not extremely high to warrant CTA chest Full code Cardiac diet DVT prophylaxis covered with Lovenox Attestations 2 Medical Necessity Statement*: Anticipating discharge within 48 hours Diagnoses CHF (congestive heart failure), NYHA class III I50.9 Acute on chronic congestive heart failure I50.9 Atrial fibrillation with rapid ventricular response I48.91 Dizziness R42
[2024-06-25] MEDS: metoprolol tartrate 1 mg/1 mL SDV 5 mL 5 MG IVP (21:48)
[2024-06-25] MEDS: FUROsemide 10 mg/mL SDV 4mL 40 MG IVP (21:48)
[2024-06-25 21:49] VITALS: BP 117/91; PULSE 111; RESP 18; O2SAT 95
[2024-06-25 22:23] VITALS: BP 124/84; PULSE 112; RESP 18; O2SAT 92
[2024-06-25 23:05] LABS: Thyroid Stimulating Hormone 5.18 uIU/mL (0.27-4.20)
[2024-06-25 23:14] LABS: Vitamin B12 379 pg/mL (232-1245)
[2024-06-25] MEDS: digoxin 250 mcg/ml INJ 2 mL 500 MCG IVP (23:15)
[2024-06-25 23:36] VITALS: BP 126/95; PULSE 103; RESP 16; TEMP 36.7; O2SAT 94
[2024-06-25 23:37] VITALS: PULSE 103
[2024-06-26] VITALS (13 sets, daily range): BP systolic 102–139; BP diastolic 48–77; PULSE 75–102; RESP 14–20; TEMP 36.6–37.1; O2SAT 90–97
--- NOTE | 2024-06-26 00:06 | ECG_ITS ---
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 Measurements Intervals [place] Rate: 81 P: 0 ND: 0 QRS: 50 QRSD: 137 T: 42 QT: 395 QTc: 459 Interpretive Statements ATRIAL TACHYCARDIA WITH ABERRANT CONDUCTION, AND VENTRICULAR PREMATURE COMPLEXES RIGHT BUNDLE BRANCH BLOCK Compared to ECG 06/25/2024 20:35:25 No significant change Electronically Signed On 06-26-2024 16:03:04 STAFF REGISTERED NURSE by David Cohen M.D. [email or web address]
[2024-06-26 01:11] LABS: Troponin 5 6HR 15.58 ng/L (0-10); Troponin 5 6HR Delta 2.58 ng/L (0-12)
[2024-06-26 04:09] LABS: Basophils % 0.6 %; Eosinophils # 0.2 10^3/uL (0.0-0.8); Eosinophils % 2.9 %; Hematocrit 39.5 % (36-47); Lymphocytes # 0.8 10^3/uL (0.8-4.8); Lymphocytes % 12.8 %; Mean Corpuscular HGB Conc 31.4 g/dL (30-55); Mean Corpuscular Volume 95.4 fl (85-98); Mean Platelet Volume 12.3 fL (7.4-10.4); Monocytes # 0.7 10^3/uL (0.2-0.9); Monocytes % 11.2 %; Neutrophils # 4.54 10^3/uL (1.8-7.7); Neutrophils % 72.3 %; Nucleated Red Blood Cells % 0 %; Platelet Count 152 10^3/cmm (157-399); Red Blood Count 4.14 10^6/uL (3.85-5.65); Red Cell Distribution Width 13.2 % (12.1-15.1); White Blood Count 6.27 10^3/uL (3.29-11.43)
[2024-06-26 04:33] LABS: Anion Gap 13.9 (5-19); Blood Urea Nitrogen 17 mg/dL (8-23); C Reactive Protein 22.4 mg/L (0.0-4.9); Calcium 8.6 mg/dL (8.5-10.5); Carbon Dioxide 27 mmol/L (22-29); Chloride 100 mmol/L (98-107); Glucose 111 mg/dL (65-115); Magnesium 1.9 mg/dL (1.7-2.3); Osmolality Calculated 286 mOsm/kg (285-295); Potassium 3.9 mmol/L (3.5-5.1); Sodium 137 mmol/L (136-145)
[2024-06-26] MEDS: levothyroxine 25 mcg Tablet PO (05:38)
[2024-06-26] MEDS: FUROsemide 10 mg/mL SDV 10mL 20 MG IVP (08:54)
[2024-06-26] MEDS: magnesium oxide 400 mg tablet 200 MG PO (08:55)
[2024-06-26] MEDS: lisinopril 5 mg Tablet 20 MG PO (08:55)
[2024-06-26] MEDS: potassium chloride ER 20 mEq Tablet PO (08:55)
[2024-06-26] MEDS: metoprolol tartrate 25 mg Tablet 50 MG PO ×2 (08:56→20:22)
--- NOTE | 2024-06-26 10:23 | PC.NURSE ---
decision was made to not discharge pt today as was ordered...possibly tomorrow...depending on heart rate and bp.
--- NOTE | 2024-06-26 10:25 | P.PN_ITS ---
Subjective 2 Medications: Medication Review Details: She is feeling better today. She stood up with therapy. She denies pain or discomfort. Her grandson reports she got lightheaded standing. Vitals/I&O/Wt Last Vital Signs Temp 98.7 F 06/26/24 07:34 Pulse 97 06/26/24 09:10 Resp 18 06/26/24 09:10 BP 139/70 06/26/24 07:34 Pulse Ox 95 06/26/24 09:10 O2 Del Method Room Air 06/26/24 09:10 06/25/24 06/26/24 06/26/24 22:59 06:59 14:59 Intake Total 240 / 240 240 / 240 Output Total 2925 / 2925 400 / 400 Balance -2685 / -2685 -160 / -160 Weight last 48 hrs Weight 48.6 kg Weight 50.5 kg Weight 48.534 kg Physical Exam 2 Const: COMMON NORMALS: patient oriented x3 and alert GENERAL APPEARANCE: c ooperative ORIENTATION/CONSCIOUSNESS: Yes awake HENMT: COMMON NORMALS: oropharynx normal Neck/C-Spine: COMMON NORMALS: no JVD Resp: COMMON NORMALS: normal respiratory effort and clear to auscultation bilaterally AUSCULTATION: clear to auscultation bilaterally Cardio: COMMON NORMALS: no JVD, S1 normal heart sound present, S2 normal heart sound present and No murmurs present (Cardio) RHYTHM: abnormal rhythm irregularly irregular HEART SOUNDS: S1 normal heart sound present and S2 normal heart sound present GI: COMMON NORMALS: Normal to inspection, nondistended, normoactive bowel sounds present, Soft to palpation and non-tender PALPATION: Yes Soft to palpation Extremity: COMMON NORMALS: no joint enlargement and no pedal edema Neuro: COMMON NORMALS: patient oriented x3 and moves all extremities S ENSORIUM/ORIENTATION: Yes alert Skin: COMMON NORMALS: no rashes or lesions noted GENERAL SKIN EXAM: no rashes or lesions noted Data 06/26/24 04:04 06/26/24 04:04 A&P Assessment and plan (1) CHF (congestive heart failure), NYHA class III: (2) Acute on chronic congestive heart failure: (3) Atrial fibrillation with rapid ventricular response: (4) Dizziness: Plan Acute preserved ejection fraction heart failure exacerbation: In negative balance, -2.7 L, hold additional IV diuretic. Will reassess. Resumed on Entresto. Lisinopril stopped. It seems related to hypertensive urgency and A-fib RVR Will started on IV Lasix Replenish potassium Will give her digoxin 1 dose for now I would not repeat echo as it was done recently this year No active chest pain Hypertensive urgency Increase the dose of lisinopril to optimal dose 20 mg twice daily, patient will need Lasix, I would increase the dose of metoprolol to 50 mg twice daily A-fib RVR new onset: Heart rates down to 90s-100s, although did get up and 120s with standing up with therapy. She reportedly got lightheaded per history obtained from her grandson. We considered increasing metoprolol, however, on reassessment heart rates in the 80s-90s, continued on 50 mg twice daily without additional adjustments for now. Monitor for risk of hypotension. She is very concerned about falling down and having significant bleeding with anticoagulation. Understands the risk of stroke. At the same time states that she sometimes rushes out to help her who himself is on anticoagulation and does not want to have to deal with the same concerns. She is okay with starting aspirin. She will speak with her primary provider further regarding consideration of options, watchman, etc. She is free of chest pain. Breathing is comfortable. Similarly she understands the purpose of stress test, understands additional assessment for coronary disease, and a stress test has been considered by her banquet captain. We discussed additional assessment by stress testing, but she does not want the test at current time due to concern of adverse effects from the test and wishes to discuss with her banquet captain before having 1 done. Recheck potassium, magnesium. Patient consider herself fairly active for her age D-dimer not elevated adjusted for age. Full code Cardiac diet DVT prophylaxis covered with Lovenox Attestations 2 Medical Necessity Statement*: Continue optimization of control of A-fib with RVR, reassess after CHF exacerbation. Diagnoses CHF (congestive heart failure), NYHA class III I50.9 Acute on chronic congestive heart failure I50.9 Atrial fibrillation with rapid ventricular response I48.91 Dizziness R42
[2024-06-26] MEDS: sacubitril/valsartan 24-26 mg Tablet 1 EACH PO (17:26)
[2024-06-26] MEDS: enoxaparin 60 mg/0.6 mL Syringe 50 MG SUBCUT (17:26)
[2024-06-27 03:48] VITALS: BP 102/51; PULSE 78; RESP 16; O2SAT 93
[2024-06-27 04:13] LABS: Anion Gap 12.7 (5-19); Blood Urea Nitrogen 21 mg/dL (8-23); Carbon Dioxide 29 mmol/L (22-29); Chloride 103 mmol/L (98-107); Creatinine Clr Calc Pharmacy 28.1414; Glucose 98 mg/dL (65-115); Magnesium 1.8 mg/dL (1.7-2.3); Osmolality Calculated 295 mOsm/kg (285-295); Potassium 3.7 mmol/L (3.5-5.1); Sodium 141 mmol/L (136-145)
[2024-06-27 04:57] VITALS: PULSE 78
[2024-06-27] MEDS: levothyroxine 25 mcg Tablet PO (05:12)
[2024-06-27 07:15] VITALS: BP 102/51
[2024-06-27 07:30] VITALS: BP 122/62
[2024-06-27 07:45] VITALS: BP 136/91; PULSE 97
[2024-06-27] MEDS: potassium chloride ER 20 mEq Tablet 40 MEQ PO (08:42)
[2024-06-27] MEDS: aspirin 325 mg Tablet PO (08:43)
[2024-06-27] MEDS: sacubitril/valsartan 24-26 mg Tablet 1 EACH PO (08:43)
[2024-06-27] MEDS: metoprolol tartrate 25 mg Tablet 50 MG PO (08:44)
[2024-06-27] MEDS: magnesium oxide 400 mg tablet 200 MG PO (08:44)
--- NOTE | 2024-06-27 09:23 | P.DS_ITS ---
Discharge Providers Date of Admission: 06/25/24 20:43 Date of Discharge: June 27, 2024 Attending Provider at Admission: Marily Schmidt MD Attending Provider at Discharge: Skinny Barger Primary Care Provider: Ralph Doty Diagnoses at Discharge Discharge Diagnosis (1) CHF (congestive heart failure), NYHA class III: Status: Acute (2) Acute on chronic congestive heart failure: Status: Acute (3) Atrial fibrillation with rapid ventricular response: Status: Acute (4) Dizziness: Status: Acute Reason for Visit Reason for Visit: chest pains and SOB Brief History: Joanie Rodriguez is a 88 year old female with history of 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 Patient is stating that her symptoms are 24 hours before her arrival in the ER with orthopnea PND coughing and palpitations. She has not noticed any fever but endorsing cough. In the ER she is diagnosed with new onset A-fib with RVR new, CHF exacerbation, hypertensive urgency She has received Lasix 40 mg along metoprolol I have given her digoxin for her A-fib RVR Hospital Course Hospital Course She received a dose of digoxin initially, metoprolol dose was increased to 50 mg twice daily. Anticoagulation was discussed with her, however, she is concerned about elevated risk of bleeding with her increased risk of falls. She is okay for now with starting aspirin, but will discuss further with her technical staff assistant regarding consideration of further options of stroke reduction with atrial fibrillation which she understands. She is doubtful that she may pursue an atrial appendage closure device. She received supplementation of potassium and magnesium. With adjustment of medications heart rates improved and remained well-controlled in the mid 80s including with ambulation. She received Lasix for treatment of mild diastolic congestive heart exacerbation. Echocardiogram was performed recently in January with grade 2 diastolic function, normal ejection fraction, no regional wall motion abnormality. She remained free of chest pain. She feels that she had a recent viral infection which may be served as a trigger for her atrial fibrillation. We discussed regarding additional assessment including stress test, however, she is concerned regarding adverse effects and wants to discuss with her technical staff assistant before proceeding. She has an appointment on July 28, but her family will call on Friday to reschedule it sooner. Her TSH was minimally elevated at 5.18, she continues on levothyroxine. Please reassess thyroid function. She is asked to continue magnesium supplementation. Please follow-up magnesium and potassium. At discharge she is continued on metoprolol tartrate 25 mg twice daily Family have some concerns about her driving anymore with some episodes of lightheadedness and will be asking for reassessment with her doctors. Physical Exam Narrative: Awake, alert, pleasant, conversant, in good spirits. IV is stopping to work, she did request not to have any additional blood draws or IVs. Requests to go home. Const: COMMON NORMALS: patient oriented x3 and alert GENERAL APPEARANCE: cooperative ORIENTATION/CONSCIOUSNESS: Yes awake HENMT: COMMON NORMALS: oropharynx normal Neck/C-Spine: COMMON NORMALS: no JVD Resp: COMMON NORMALS: normal respiratory effort and clear to auscultation bilaterally AUSCULTATION: clear to auscultation bilaterally Cardio: COMMON NORMALS: no JVD, S1 normal heart sound present, S2 normal heart sound present and No murmurs present (Cardio) RHYTHM: abnormal rhythm irregularly irregular HEART SOUNDS: S1 normal heart sound present and S2 normal heart sound present GI: COMMON NORMALS: Normal to inspection, nondistended, normoactive bowel sounds present, Soft to palpation and non-tender PALPATION: Yes Soft to palpation Extremity: COMMON NORMALS: no joint enlargement and no pedal edema Neuro: COMMON NORMALS: patient oriented x3 and moves all extremities SENSORIUM/ORIENTATION: Yes alert Skin: COMMON NORMALS: no rashes or lesions noted GENERAL SKIN EXAM: no rashes or lesions noted Discharge Data Studies Completed and Pending Completed Studies During Hospitalization Category Date Time Status XR chest 1V portable [id number] Stat Exams 06/25/24 18:06 Completed Pending at discharge Category Date Time Status Basic Metabolic Panel AM LABS Lab 06/28/24 04:00 Ordered Basic Metabolic Panel AM LABS Lab 06/29/24 04:00 Ordered Radiology Impressions Chest X-Ray 06/25/24 18:06 IMPRESSION: Blunting of the bilateral costophrenic angles, likely reflecting bilateral pleural effusions and/or atelectasis. Interstitial prominence, may be related to vascular congestion, infiltrate not excluded. Laboratory Results WBC 6.27 10^3/uL (3.29-11.43) 06/26/24 04:04 RBC 4.14 10^6/uL (3.85-5.65) 06/26/24 04:04 Hgb 12.40 g/dL (11.27-16.99) 06/26/24 04:04 Hct 39.5 % (36-47) 06/26/24 04:04 MCV 95.4 fl (85-98) 06/26/24 04:04 MCH 30.0 pg (27-33) 06/26/24 04:04 MCHC 31.4 g/dL (30-55) 06/26/24 04:04 RDW 13.2 % (12.1-15.1) 06/26/24 04:04 Plt Count 152 10^3/cmm (157-399) L 06/26/24 04:04 MPV 12.3 fL (7.4-10.4) H 06/26/24 04:04 Neut % (Auto) 72.3 % 06/26/24 04:04 Lymph % (Auto) 12.8 % 06/26/24 04:04 [place] % (Auto) 11.2 % 06/26/24 04:04 Eos % (Auto) 2.9 % 06/26/24 04:04 Baso % (Auto) 0.6 % 06/26/24 04:04 Neut # (Auto) 4.54 10^3/uL (1.8-7.7) 06/26/24 04:04 Lymph # (Auto) 0.8 10^3/uL (0.8-4.8) 06/26/24 04:04 [place] # (Auto) 0.7 10^3/uL (0.2-0.9) 06/26/24 04:04 Eos # (Auto) 0.2 10^3/uL (0.0-0.8) 06/26/24 04:04 Baso # (Auto) 0.0 10^3/uL (0.0-0.1) 06/26/24 04:04 Nucleated RBC % (auto) 0 % 06/26/24 04:04 Nucleated RBCs # 0.0 /100WBC 06/26/24 04:04 D-Dimer 0.71 ug/mLFEU (0-0.59) H 06/25/24 18:13 Sodium 141 mmol/L (136-145) 06/27/24 02:57 Potassium 3.7 mmol/L (3.5-5.1) 06/27/24 02:57 Chloride 103 mmol/L (98-107) 06/27/24 02:57 Carbon Dioxide 29 mmol/L (22-29) 06/27/24 02:57 Anion Gap 12.7 (5-19) 06/27/24 02:57 BUN 21 mg/dL (8-23) 06/27/24 02:57 Creatinine 1.0 mg/dL (0.5-0.9) H 06/27/24 02:57 GFR Calculation Not Reportable 06/27/24 02:57 Glucose 98 mg/dL (65-115) 06/27/24 02:57 Calculated Osmolality 295 mOsm/kg (285-295) 06/27/24 02:57 Calcium 8.0 mg/dL (8.5-10.5) L 06/27/24 02:57 Magnesium 1.8 mg/dL (1.7-2.3) 06/27/24 02:57 Total Bilirubin 0.7 mg/dL (0.15-1.2) 06/25/24 18:33 AST 15 U/L (0-32) 06/25/24 18:33 ALT 12 U/L (0-33) 06/25/24 18:33 Alkaline Phosphatase 84 U/L (35-105) 06/25/24 18:33 Troponin T Baseline 13 ng/L (0-10) H 06/25/24 18:33 Troponin T 120 Minute 14.69 ng/L (0-10) H 06/25/24 20:29 Delta Troponin T 1.69 ABS# (0-10) 06/25/24 20:29 Troponin T Hi Sens 6Hr 15.58 ng/L (0-10) H 06/26/24 00:37 Troponin T Hi Sens 6Hr Delta 2.58 ng/L (0-12) 06/26/24 00:37 C-Reactive Protein 22.4 mg/L (0.0-4.9) H 06/26/24 04:04 NT-Pro-B Natriuret Pep 5358 pg/mL (0-450) H 06/25/24 18:33 Total Protein 5.4 g/dL (6.6-8.7) L 06/25/24 18:33 Albumin 3.7 g/dL (3.5-5.2) 06/25/24 18:33 Globulin 1.7 g/dL (1.3-4.6) 06/25/24 18:33 Vitamin B12 379 pg/mL (232-1245) 06/25/24 18:33 TSH 5.18 uIU/mL (0.27-4.20) H 06/25/24 18:33 Urine Color Yellow (Yellow) 06/25/24 18:55 Urine Appearance Clear (CLEAR) 06/25/24 18: Urine pH 5.0 (5-7) 06/25/24 18:55 Ur Specific [place] 1.014 (1.005-1.030) 06/25/24 18:55 Urine Protein Negative (Negative) 06/25/24 18:55 Urine Glucose (UA) Negative (Normal) 06/25/24 18:55 Urine Ketones Negative (Negative) 06/25/24 18:55 Urine Blood Negative (Negative) 06/25/24 18:55 Urine Nitrate Negative (Negative) 06/25/24 18:55 Urine Bilirubin Negative (Negative) 06/25/24 18:55 Urine Urobilinogen 0.2 mg/dL (Negative) 06/25/24 18:55 Ur Leukocyte Esterase Trace (Negative) A 06/25/24 18:55 Urine RBC 0-2 /hpf (0-2) 06/25/24 18:55 Urine WBC 0-5 /hpf (0-5) 06/25/24 18:55 Ur Squamous Epith Cells 0-5 /hpf (0-5) 06/25/24 18:55 Amorphous Sediment Not Reportable 06/25/24 18:55 Urine Bacteria None seen /hpf (NONE) 06/25/24 18:55 Hyaline Casts 0-4 /lpf H 06/25/24 18:55 Vitals Last Vital Signs Temp 97.8 F 06/26/24 23:24 Pulse 97 06/27/24 07:45 Resp 16 06/27/24 03:48 BP 136/91 11/10/24 07:45 Pulse Ox 93 06/27/24 03:48 O2 Del Method Room Air 06/27/24 03:48 Discharge Plan Discharge Patient Disposition: Home Condition: Stable Prescriptions: New aspirin 325 mg Tablet 325 mg PO DAILY Qty: 90 0RF metoprolol tartrate 25 mg Tablet 50 mg PO BID@0900,2100 Qty: 180 0RF Continued levothyroxine 25 mcg capsule 25 mcg PO QAM mirtazapine 7.5 mg tablet 7.5 mg PO BEDTIME PRN (Reason: Anxiety) pantoprazole [Protonix] 40 mg tablet,delayed release (DR/EC) 40 mg PO DAILY magnesium oxide 400 mg magnesium Tablet 400 mg PO DAILY potassium chloride 20 mEq tablet extended release 20 meq PO DAILY PRN (Reason: Only with Lasix) Qty: 30 3RF furosemide [Lasix] 20 mg tablet 20 mg PO DAILY PRN (Reason: >3 pounds weight gain or cannot lay flat) Qty: 30 1RF amlodipine 5 mg tablet 5 mg PO DAILY PRN (Reason: SBP over 160) dicyclomine 10 mg Capsule 10 mg PO DAILY Entresto 24-26 mg Tablet 1 tab PO BID Discontinued metoprolol succinate 25 mg tablet extended release 24 hr 25 mg PO DAILY Discharge Orders: Discharge Order (Routine); Ordered 06/27/24 Ordered By: Skinny Barger Referrals: Ralph Doty [Primary Care Provider] - 4-7 days (please call your technical staff assistant's office on friday to make an appointment for 4-7 days ) Discharge Diet: Cardiac Patient Instructions: Metoprolol (By mouth), Aspirin (By mouth), Heart Failure (DC), A-fib (Atrial Fibrillation) (GEN), CHF Stoplight, Stroke Stoplight Activity Restrictions/Additional Instructions: Continue to monitor blood pressure and heart rate at home 3 times daily, write the values to bring to her appointment. Target blood pressure 130/90 or below. Follow-up with your primary doctor and technical staff assistant regarding new atrial fibrillation and stroke risk due to atrial fibrillation, consideration of anticoagulation in case your fall risk improves. For now you are started on aspirin. Speak with your doctors again about considering a stress test. Seek medical attention in case of any worsening or new concerning symptoms. Discharge Attestations Time Spent in Discharge Care*: greater than 30 min Quality Metrics Clinical Quality Measures [ No reported AMI, CVA or VTE this stay] Coding Level of Care Code 16093 Total time (in minutes) for Discharge: 50 Diagnoses CHF (congestive heart failure), NYHA class III I50.9 Acute on chronic congestive heart failure I50.9 Atrial fibrillation with rapid ventricular response I48.91 Dizziness R42
[2024-06-27 09:35] VITALS: BP 136/91; PULSE 88; RESP 18; TEMP 36.4; O2SAT 94
--- NOTE | 2024-06-27 10:41 | PC.NURSE ---
discharge instructions given and explained to pt and grandchildren.they verb understanding of instructions.discharged via w/c to exit at this time.grandson to drive pt home
== END 2024-06-27 10:46 | disposition home or self-care (01) ==
LOC: ER 21:02 → CSU 23:43
PROVIDERS: Admitting Provider Internal Medicine; Emergency Provider Emergency Medicine; PCP Family Medicine; Visit Provider Internal Medicine
DX: I50.33 Acute on chronic diastolic (congestive) heart failure (principal); I48.91 Unspecified atrial fibrillation; R42 Dizziness and giddiness; I16.0 Hypertensive urgency
CPT/HCPCS: 36415; 71045; 80048; 80053; 81001; 82607; 83735; 83880; 84443; 84484; 85025; 85378; 86140; 93005; 96365; 96372; 96375; 96376; 97161; 99285; G0378; J1160; J1650; J1940; J3475; J3490